=== PATIENT | male | born 1955 | race Caucasian/White ===

== ENCOUNTER 2016-10-30 17:17 | Inpatient (IN) | payer OTHER ==
[~2016-10-30] VITALS: Ht 170.2 cm; Wt 84.4 kg
--- NOTE | 2016-10-30 17:26 | NUR ---
PER PT SENT IN FOR ADMISSION FOR CHF INCREASED SOB, PMD SPOKE WITH DR. MANRIQUEZ FOR ADMISSION
--- NOTE | 2016-10-30 17:33 | NUR ---
RECIEVED TO ROOM 1
--- NOTE | 2016-10-30 17:34 | ED GENERAL ADULT ---
History of Present Illness General Chief Complaint: General Adult Stated Complaint: PT WAS SIB BY AND SPOKE TO DR MANRIQUEZ Source: patient, family Exam Limitations: no limitations Vital Signs & Intake/Output Vital Signs & Intake/Output Vital Signs Date Time Temp Pulse Resp B/P B/P Pulse O2 O2 Flow FiO2 Mean Ox Delivery Rate 10/30 1929 97.3 96 20 139/81 94 Nasal 3.0L Cannula 10/30 1807 96 Nasal 3.0L Cannula 10/30 1727 97.8 106 24 158/93 88 Room Air Allergies Coded Allergies: No Known Allergies (10/30/16) Reconcile Medications Cholecalciferol (Vitamin D3) (Vitamin D) 2,000 UNIT CAPSULE 1 CAP PO DAILY SUPPLEMENT (Reported) Multivitamin (Multi-Day Vitamins) 1 EACH TABLET 1 TAB PO DAILY SUPPLEMENT ( Reported) Triage Note: PER PT SENT IN FOR ADMISSION FOR CHF INCREASED SOB, PMD SPOKE WITH DR. MANRIQUEZ FOR ADMISSION Triage Nurses Notes Reviewed? yes HPI: Patient is a 61-year-old male sent in by his primary doctor on the Efrain Lopez MD for further evaluation of dyspnea with exertion and lower extremity edema. Patient reports that symptoms have been going on for approximately one month. Patient initially thought that he had an upper respiratory infection but symptoms persisted. Patient has a history of hypertension and diabetes that he has not been on medication for for several years. Patient presented to his primary care doctor was found to have Q waves in V1 and V2 on his EKG with a new murmur. Patient reports that dyspnea is currently 0 out of 10 at rest, moderate to severe with exertion. Lower extremity edema times one month. Patient denies chest pain, fevers, chills. (KASH LARA) Past History Medical History Any Pertinent Medical History? see below for history Neurological: NONE EENT: NONE Cardiovascular: hypertension Respiratory: NONE Gastrointestinal: NONE Hepatic: NONE Renal: NONE Musculoskeletal: NONE Psychiatric: NONE Endocrine: diabetes Surgical History Surgical History: non-contributory Psychosocial History What is your primary language [place] Tobacco Use: Never used ETOH Use: denies use Family History Hx Contributory? No (KASH LARA) Review of Systems Review of Systems Constitutional: Denies: chills, fever. EENTM: Reports: no symptoms. Respiratory: Reports: see HPI, cough, short of breath. Denies: sputum production. Cardiovascular: Reports: peripheral edema. Denies: chest pain, syncope. GI: Denies: abdominal pain, nausea, vomiting. Genitourinary: Reports: no symptoms. Musculoskeletal: Reports: no symptoms. Skin: Reports: no symptoms. Neurological/Psychological: Reports: no symptoms. Hematologic/Endocrine: Reports: no symptoms. Immunologic/Allergic: Reports: no symptoms. (KASH LARA) Physical Exam Physical Exam General Appearance: alert, awake Head: atraumatic, normal appearance Eyes: Bilateral: normal appearance, PERRL, EOMI. Ears, Nose, Throat: normal pharynx, normal ENT inspection, hearing grossly normal Neck: normal inspection, supple, full range of motion Respiratory: normal breath sounds, chest non-tender, no respiratory distress, lungs clear Cardiovascular: regular rate/rhythm, edema, normal peripheral pulses, systolic murmur (3/6) Peripheral Pulses: 2+ dorsalis pedis (R), 2+ dorsalis pedis (L) Gastrointestinal: soft, non-tender Back: normal inspection, normal range of motion Extremities: normal capillary refill, normal range of motion, 2+ BILATERAL LOWER EXTREMITY EDEMA Neurologic/Psych: no motor/sensory deficits, awake, alert, oriented x 3 Skin: intact, normal color, warm/dry Lymphatic: no anterior cervical alon Core Measures ACS in differential dx? Yes ASA ordered for poss ACS? No-ACS ruled out CVA/TIA Diagnosis: No Severe Sepsis Present: No Septic Shock Present: No (KASH LARA) Progress Differential Diagnoses I considered the following diagnoses in my evaluation of the patient: Plan of Care: Orders Procedure Date/time Status Patient Data 10/30 1911 Active Admit to inpatient 10/30 1908 Active Add-on Test (ER Only) 10/30 1754 Active FingerStick- Glucose 10/30 1744 Active Telemetry/Comptroller 10/30 174 Active TROPONIN LEVEL 10/30 1740 Active MAGNESIUM 10/30 1740 Active COMPREHENSIVE METABOLIC PANEL 10/30 1740 Active CBC WITHOUT DIFFERENTIAL 10/30 174 Complete B-TYPE NATRIURETIC PEP (BNP) 10/30 174 Active ACETONE 10/30 174 Active EKG 10/30 1730 Active Laboratory Tests 10/30/16 1758: Anion Gap 9, Estimated GFR > 60, BUN/Creatinine Ratio 24.3, Glucose 299 H, Calcium 8.5, Magnesium 1.6, Total Bilirubin 0.9, AST 19, ALT 50, Alkaline Phosphatase 91, Troponin I 0.04, Qxs-[id number]-[id number] Pept 3510 H, Total Protein 6.0 L, Albumin 3.2 L, Globulin 2.8, Albumin/Globulin Ratio 1.1, CBC w Diff NO MAN DIFF REQ, RBC 4.98, MCV 90.3, MCH 29.8, RDW 13.8, MPV 7.6, Gran % 63.4, Lymphocytes % 24.3, Monocytes % 10.4 H, Eosinophils % 1.7, Basophils % 0.2, Absolute Granulocytes 4.6, Absolute Lymphocytes 1.7, Absolute Monocytes 0.8 H, Absolute Eosinophils 0.1, Absolute Basophils 0.0, PUBS MCHC 33.1, Acetone Level Pending Results of labs and chest x-ray discussed with patient and his . IV Lasix and insulin ordered. Discussed with Dr. James. Dr. James discussed patient with Dr. Jerez for admission. (ALEX ALVARENGA,KASH) Diagnostic Imaging: Viewed by Me: Radiology Read. Discussed w/RAD: Radiology Read. CXR Impression: PATIENT: CLAY ESPINOSA PRESENT AGE: 61 PATIENT ACCOUNT NO: [id number] : 55 LOCATION: [facility] ORDERING PHYSICIAN: KASH ALVARENGA SERVICE DATE: 10/30/16 EXAM TYPE: RAD - XRY-CHEST XRAY, PA AND LATERAL EXAMINATION: XR CHEST CLINICAL INFORMATION: Dyspnea on exertion. Lower extremity edema. COMPARISON: None. TECHNIQUE: 2 views of the chest were obtained. FINDINGS: Multiple views of the chest demonstrate pulmonary hypoinflation. There is blunting of the bilateral costophrenic angles, indicative of small to moderate bilateral pleural effusions. Cardiac mediastinal contours are obscured. However, the cardiac silhouette appears to be prominent. There are prominent bilateral interstitial lung markings which could reflect interstitial pulmonary edema. No pneumothoraces. No visible acute osseous abnormality. IMPRESSION: Small to moderate bilateral pleural effusions. Prominence of the cardiac silhouette. Prominent interstitial lung markings could reflect interstitial pulmonary edema. Limited evaluation for alveolar edema given obscuration of the bilateral hilar regions by bilateral pleural effusions. DICTATED BY: VENU GAGNON MD DATE/TIME DICTATED:10/30/161899 [employer] MACHINE OPERATOR:VANESSA DATE/TIME TRANSCRIBED:10/30/161899 CONFIDENTIAL, DO NOT COPY WITHOUT APPROPRIATE AUTHORIZATION. <Electronically signed in Other Vendor System> SIGNED BY: VENU GAGNON MD 10/30/161903 Pre-Hospital EKG: SINUS RHYTHM 100 BPM, NORMAL AXIS, Q WAVES V1 AND V2, NONSPECIFIC ST/T WAVE ABNORMALITIES Initial ED EKG: SINUS TACHYCARDIA 104 BPM, Q WAVES V1 AND V2, NONSPECIFIC ST/T WAVE ABNORMALITIES Rhythm Strip: normal sinus rhythm (KASH LARA) Departure Departure Time of Disposition: 1907 Disposition: HOME OR SELF CARE Condition: Stable Clinical Impression Primary Impression: CHF exacerbation Qualifiers: Congestive heart failure type: unspecified congestive heart failure type Qualified Code: I50.9 - Heart failure, unspecified Referrals: EFRAIN LOPEZ MD (PCP/Family) Departure Forms: Customer Survey General Discharge Information Admission Note Spoke With: DON JEREZ MD Documentation of Exam: Documentation of any treatments & extenuating circumstances including Concerns Regarding Discharge (functional status, medication knowledge or non-compliance, living conditions, etc.) that warrant an admission rather than observation: Telemetry monitoring, serial EKGs, serial troponins, diuresis, echocardiogram, cardiology consultation, control blood sugars (KASH LARA) PA/RN HEDIS Co-Sign Statement Statement: ED Attending supervision documentation- [X] I saw and evaluated the patient. I have also reviewed all the pertinent lab results and diagnostic results. I agree with the findings and the plan of care as documented in the PA's/RN HEDIS's documentation. [X] I have reviewed the ED Record and agree with the PA's/RN HEDIS's documentation. [] Additions or exceptions (if any) to the PAs/RN HEDIS's note and plan are summarized below: [] (BENNIE SALCEDO,NATHAN Reyes) Critical Care Note Critical Care Note Critical Care Time: non-applicable (KASH LARA)
--- NOTE | 2016-10-30 17:40 | NUR ---
SEEN BY KASH ALVARENGA. EKG DONE
--- NOTE | 2016-10-30 17:45 | NUR ---
PT ON MONITOR AND IS IN SINUS TACH.
--- NOTE | 2016-10-30 17:59 | NUR ---
IV PLACED. LABS DRAWN. FINGERSTICK GLUCOSE 308
--- NOTE | 2016-10-30 18:02 | NUR ---
PT SATS 89% ON ROOM AIR. PLACED ON 2 LITERS AND SAYS 93%. INCREASED TO 3 LITERS
[2016-10-30 18:09] LABS: ABSOLUTE EOSINOPHIL COUNT 0.1 /CUMM (0.0-0.7); ABSOLUTE GRANULOCYTE CT 4.6 /CUMM (1.4-6.5); ABSOLUTE LYMPH COUNT 1.7 /CUMM (1.2-3.4); ABSOLUTE MONOCYTE COUNT 0.8 /CUMM (0.10-0.60); BASOPHIL % 0.2 % (0.0-2.0); EOSINOPHIL % 1.7 % (0-5); MEAN CORPUSCULAR HGB 29.8 PG (27.0-31.0); MEAN CORPUSCULAR HGB CONC 33.1 G/DL (33.0-37.0); MEAN CORPUSCULAR VOLUME 90.3 FL (80.0-94.0); MEAN PLATELET VOLUME 7.6 FL (7.4-10.4); PLATELET COUNT 255 /CUMM (130-400); RBC DISTRIBUTION WIDTH 13.8 % (11.5-14.5); RED BLOOD CELL CT 4.98 /CUMM (4.70-6.10); WHITE BLOOD CELL COUNT 7.2 /CUMM (4.8-10.8)
[2016-10-30 18:10] LABS: GRANULOCYTE % 63.4 % (42.2-75.2); HEMATOCRIT 44.9 % (42-52)
[2016-10-30] MEDS ORDERED: VITAMIN D2000 UNIT PO (18:56)
[2016-10-30] MEDS ORDERED: MULTI-DAY VITA1 EACH PO (18:56)
--- NOTE | 2016-10-30 19:04 | RADIOLOGY REPORT ---
EXAMINATION: XR CHEST CLINICAL INFORMATION: Dyspnea on exertion. Lower extremity edema. COMPARISON: None. TECHNIQUE: 2 views of the chest were obtained. FINDINGS: Multiple views of the chest demonstrate pulmonary hypoinflation. There is blunting of the bilateral costophrenic angles, indicative of small to moderate bilateral pleural effusions. Cardiac mediastinal contours are obscured. However, the cardiac silhouette appears to be prominent. There are prominent bilateral interstitial lung markings which could reflect interstitial pulmonary edema. No pneumothoraces. No visible acute osseous abnormality. IMPRESSION: Small to moderate bilateral pleural effusions. Prominence of the cardiac silhouette. Prominent interstitial lung markings could reflect interstitial pulmonary edema. Limited evaluation for alveolar edema given obscuration of the bilateral hilar regions by bilateral pleural effusions.
--- NOTE | 2016-10-30 20:11 | NUR ---
PT SET UP TO EAT DINNER. GIVEN INSULIN. GLUCOSE CHECKED AGAIN PRIOR TO EATING
--- NOTE | 2016-10-30 21:10 | NUR ---
HOUSE STAFF IN TO SEE PT. PT VOIDING ON EDGE OF STRETCHER AFTER HOUSE STAFF COMPLETED EXAM
--- NOTE | 2016-10-30 21:16 | History & Physical ---
RICHAR SALCEDO,[facility] 10/30/166: General Information and [facility] MD Statement: I have seen and personally examined CLAY ESPINOSA and documented this H&P. The patient is a 61 year old M who presented with a patient stated chief complaint of [exertional dyspnea and lower extremity edema]. Source of Information: patient, family Exam Limitations: no limitations History of Present Illness: Mr. Espinosa is a 61 year old male with chief complain dyspnea on exertion and lower extremity edema. Patient has past medical history significant for diabetes mellitus and hypertension not on medication. Patient presented to ED today after he was in PCP office Dr. Reddy, his PCP noticed EKG changes in terms of Q waves in V1 and V2, new murmur and asked him to head to ED for evaluation. Patient reported history of 1 month of exertional dyspnea, it started as "chest cold" with dry cough and choking attacks with solid food. He reported improvement of his cough but the dyspnea maintained to be the same on exertion. His dyspnea affected his daily activity and sleep, he became more fatigued and he used to be "stomach sleeper" but now he sleeps on his left side with positive paroxysmal nocturnal dyspnea. Patient also reported bilateral lower extremity edema for one month, used to elevate his legs to improve the swelling. Patient denied any chest pain, chest tightness, palpitation, diaphoresis, dizziness, headache, visual changes, fever or chills. Patient reported decreased oral intake because of choking attacks and "swollen stomach" distended abdomen associated with decreased bowel movement, denied nausea, vomiting. The patient has no previous history of any cardiac disease, history of hypertension and diabetes not on any medication and his last doctor office was 9 years ago because of insurance issues. Patient is never a smoker, no history of alcohol consumption, no drugs. Allergies/Medications Allergies: Coded Allergies: No Known Allergies (10/30/16) Home Med list Cholecalciferol (Vitamin D3) (Vitamin D) 2,000 UNIT CAPSULE 1 CAP PO DAILY SUPPLEMENT (Reported) Multivitamin (Multi-Day Vitamins) 1 EACH TABLET 1 TAB PO DAILY SUPPLEMENT ( Reported) Past History Medical History Neurological: NONE EENT: NONE Cardiovascular: hypertension Respiratory: NONE Gastrointestinal: NONE Hepatic: NONE Renal: NONE Musculoskeletal: NONE Psychiatric: NONE Endocrine: diabetes Surgical History Surgical History: non-contributory Past Family/Social History Psychosocial History Where do you live? Home Who Do You Live With? spouse Services at Home: None Primary Language: Bel[place]ian Smoking Status: Never Smoked ETOH Use: denies use Illicit Drug Use: denies illicit drug use Employment History Employment Retired Review of Systems Review of Systems Constitutional: Denies: chills, diaphoresis, fever, weakness. EENTM: Denies: blurred vision, visual changes. Genitourinary: Denies: dysuria, frequency. Musculoskeletal: Denies: back pain, joint pain. Skin: Denies: change in skin color, change in hair/nails. Exam & Diagnostic Data Last 24 Hrs of Vital Signs/I&O Vital Signs Date Time Temp Pulse Resp B/P B/P Pulse O2 O2 Flow FiO2 Mean Ox Delivery Rate 10/30 2139 98.3 96 20 134/77 94 Nasal 3.0L Cannula 10/30 1930 97.3 96 20 139/81 94 Nasal 3.0L Cannula 10/30 1807 96 Nasal 3.0L Cannula 10/30 1727 97.8 106 24 158/93 88 Room Air Physical Exam General Appearance Alert, Oriented X3, Cooperative, No Acute Distress Skin No Rashes, No Significant Lesion Skin Temp/Moisture Exam: Warm/Dry HEENT Atraumatic, PERRLA, EOMI, Mucous Membr. moist/pink Neck Supple, JVP positive Lymphatic no cervical lymphadenopathy Cardiovascular Regular Rate, Normal S1, Normal S2, systolic murmur 2/5 max intensity at left sternal border Lungs Normal Air Movement, BL Basal crackles Abdomen Normal Bowel Sounds, Soft, No Tenderness, destended Neurological Normal Gait, Normal Speech, Strength at 5/5 X4 Ext, Normal Tone, Sensation Intact, Cranial Nerves 3-12 NL, Reflexes 2+ Extremities No Clubbing, No Cyanosis, Normal Pulses, BL LE +2 edema Assessment/Plan Assessment: Mr. Espinosa is a 61 year old male with chief complain dyspnea on exertion and lower extremity edema. Patient has past medical history significant for diabetes mellitus and hypertension not on medication. On admission Vital signs 97.8, pulse 106, blood pressure 158/93, respiratory rate 24 on the room air 88% that increased to 96% on 3 L Labs WBC 7.2, H&H 14.9/44.9, platelet 255, sodium 132, potassium 4.3, BUN/ creatinine 17/0.7, glucose 299, BP [id number] Chest x-ray IMPRESSION: Small to moderate bilateral pleural effusions. Prominence of the cardiac silhouette. Prominent interstitial lung markings could reflect interstitial pulmonary edema. Limited evaluation for alveolar edema given obscuration of the bilateral hilar regions by bilateral pleural effusions. Problem list #Acute CHF #Hypertension #Diabetes mellitus #Acute hypoxic respiratory failure moslty CHF relalated Plan -Admit to telemetry floor -Lasix 40 mg twice a day -Lisinopril 10 mg daily for hypertension and CHF -Cardiology consultation in a.m. -Echocardiogram -Repeat troponin and EKG -Daily weights, strict I's and O's -Maintain oxygen supplementation, maintain saturation more than 92% -Consider repeating chest x-ray to evaluate improvement -Monitor BMP -Accu-Chek 3 times a day and insulin sliding scale -Hemoglobin A1c -DVT prophylaxis Lovenox -Code DNR/DNI -Diet heart healthy As Ranked By This Provider Problem List: 1. CHF exacerbation Qualifiers Congestive heart failure type: unspecified congestive heart failure type Qualified Code: I50.9 - Heart failure, unspecified Core Measures/Miscellaneous Acute Coronary Syndrome ACS Diagnosis: No Cerebrovascular Accident CVA/TIA Diagnosis: No Congestive Heart Failure CHF Diagnosis: Yes Venous Thromboembolism VTE Risk Factors: Age > 40 No Mech VTE prophylaxis d/t: LE Edema No VTE Pharm Prophylaxis d/t: No contraindications VTE Diagnosis: No VTE Type: NONE VTE Confirmed by (Test): NONE Severe Sepsis Severe Sepsis Present: No Septic Shock Septic Shock Present: No Miscellaneous Documentation Attending Case Discussed With: DON THORNTON MD Primary Care Physician: EFRAIN VALLES MD Patient sees these Specialists none Level of Patient Care: Telemetry TRAVIS YIN 10/31/16 0001: Resident Review Statement Resident Statement: examined this patient, discussed with international first officer, agreed with international first officer, discussed with family, reviewed EMR data (avail) Other Findings: is a 61-year-old male with PMHx. of HTN, DM not in medications sent in by his primary doctor on the Efrain Valles MD for further evaluation of dyspnea with exertion and lower extremity edema. Patient reports that symptoms have been going on for approximately one month. Patient initially thought that he had an URTI but symptoms persisted. PCP found that the patient had a new murmur. dyspnea is more with exertion and relived by rest, associated with lower extremity started around the same time. Patient had abdominal distension that was started around the same time, he usually feels full which decrease his appettite. Patient never seen by PCP for 9 years, today is the first time to be seen by Patient denies chest pain, fevers, chills, n/v, and there is no change in urinary or bowel habits Vitals, examination and labs as above CXR:Small to moderate bilateral pleural effusions. Prominence of the cardiac silhouette. Prominent interstitial lung markings could reflect interstitial pulmonary edema. Limited evaluation for alveolar edema given obscuration of the bilateral hilar regions by bilateral pleural effusions. EKG: SR, Rate:104bpm, flat-T wave at inferior lead Assessment: #Acute CHF exacerbation #Hx. of HTN #Hx. of diabetes Plan: * Admit to tele * Will cycle troponin and EKG * He received one dose of IV Lasix, will start him on 40 IV lasix BID * Cardiology consult placed with * Will start him on insulin sliding scale * Monitor BP if still high start Lisiopril * Will check TSH * BEP, cbc at am * Lipid panel at am * Strict I's &O's and daily weight * Echocardiogram DVT ppx: sc lovenox DNR/DNI DON THORNTON 10/31/16 0049: Attending MD Review Statement Attending Statement Attending MD Statement: examined this patient, discuss w/resident/PA/STUNTMAN, agreed w/resident/PA/STUNTMAN, discussed with family, reviewed EMR data (avail), reviewed images, amended to note Attending Assessment/Plan: Cc: Worsening shortness of breath, sent by PCP PMH: None Patient came to ER from PCP office. He has not seen his primary care in 9 years, not on any medications. Today he went to see him because he was getting progressive worsening of shortness of breath, dyspnea on exertion, dry cough, congested feeling in chest, choking while eating, unable to lie down flat, waking up in the middle of the night gasping for air, worsening bilateral lower extremity edema, decreased by mouth intake, decreased level of activity. Initially he thought he might be having some respiratory bug or bronchitis but when it was not clearing off even after a month he made an appointment with PCP. From his office patient was sent to ER for EKG changes, ?murmur Vitals: Afebrile, HR 106 at presentation, RR 24, blood pressure 158/93, saturating 88% on room air, improved with 3 L nasal cannula to 94% On examination: A O 3, cooperative, moderate respiratory distress, accessory muscles in use, neck supple, JVD elevated, no lymphadenopathy, mucosa moist, no focal neurological deficit, severe pitting edema bilateral lower extremities, no obvious skin rashes or inflammation except some superficial breakdowns on shins. CVS: S1-S2, RRR . RS: Bibasilar crackles. Abdomen: Soft, NT, distended bowel sounds present. Peripheral pulses perfusion normal Labs CBC unremarkable, glucose 299, bicarbonate 26, BUN 17, creatinine 0.7, anion gap 9, proBNP 3510, troponin 0.04 EKG: ?Q waves V1 and lead 3, no comparison available Chest x-ray: Small to moderate bilateral pleural effusions. Prominence of the cardiac silhouette. Prominent interstitial lung markings could reflect interstitial pulmonary edema. Limited evaluation for alveolar edema given obscuration of the bilateral hilar regions by bilateral pleural effusions. A and P Progressive worsening of shortness of breath, chest congestion, worsening left lower extremity edema, significantly elevated proBNP, and examination findings suggestive of heart failure. This appears new onset, patient is unaware of and not seen any physician in last 9 years. Patient denies any chest pain, exertional angina. + New onset heart failure, acute + Acute respiratory failure hypoxic secondary to heart failure + Hyperglycemia, likely new onset diabetes + Mildly elevated blood pressure - Admit to telemetry - Telemetry monitoring - Continue his O2, tapered off as possible - Strict I's and O's, daily weights - 1 more set of troponin, and EKG - Lasix 40 mg IV twice a day - Check magnesium and replace if required - 2-D echo in a.m. - Cardiology consult (patient request Dr. Ingram's group) - HbA1c, lipid profile - Sliding scale low-dose insulin aspart - If blood pressure persistently high then start lisinopril very low dose from tomorrow. - DVT prophylaxis with heparin, adequate pain control.
--- NOTE | 2016-10-30 21:45 | NUR ---
PT VOIDING IN URINAL AFTER GETTING LASIX. ABLE TO OBTAIN ACCURATE URINE OUTPUT THIS METHOD. PAGED DR GUEVARA AND ASKED IF WE COULD NOT PLACE [facility]ENE CATH. VERBAL ORDERS RECIEVED TO NOT PLACE KEENE AT THIS TIME
--- NOTE | 2016-10-30 22:14 | NUR ---
PT GOING TO ROOM 189-2
--- NOTE | 2016-10-30 22:21 | NUR ---
REPORT CALLED TO MELINA ON TELE UNIT
--- NOTE | 2016-10-30 22:42 | NUR ---
PT TRANSFERRED TO TELE UNIT, ACCOMPANIED BY HERMELINDA LI
[2016-10-30 22:59] VITALS: BP 126/88
--- NOTE | 2016-10-30 23:00 | NUR ---
NURSING NOTE; PT ADMITTED TO FLOOR FROM ER. A+OX3. NSR 70'S. VSS. RECEIVED IV LASIX IN THE ER. VOIDING USING URINAL. ON 2L NC. NO S/O SOB.
--- NOTE | 2016-10-31 00:51 | Admission Certification ---
Admission Certification Certification Statement - As attending physician, I certify that at the time of - admission, based on clinical presentation, severity of - symptoms, need for further diagnostic testing and - therapeutic interventions, and risk of adverse outcomes - without in-hospital treatment, in my clinical assessment, - this patient requires an acute hospital stay for a minimum - of two nights or longer. I have also considered psychsocial - factors such as support system, advanced age, financial - issues, cognitive issues, and failed out-patient treatments, - past re-admission history, safety of patient, and lack of - compliance as applicable. Specific rationale supporting this admission is: New onset heart failure
--- NOTE | 2016-10-31 07:35 | PN- Housestaff ---
LEN EVANS 10/31/16 0735: Subjective Follow-up For: Acute CHF Lower extremity edema Shortness of breath Complaints: no complaints Tele-Events Since Last Visit: No overnight telemetry events noted Subjective: Patient was seen and examined this morning. He was sitting comfortably in bed without any complaints. He admits that his bleeding and lower extremity edema is better after IV Lasix. He remained afebrile. He is saturating 94% on 2 L of nasal cannula. His blood sugars were running high with night time postprandial was 307, fasting blood sugar was 167 and prelunch was 273. During hospital stay patient is covered with insulin for now. His hemoglobin A1c came back 11.8. Patient haven't seen his primary care for years and was not taking any medications for his diabetes. Review of Systems Constitutional: Denies: chills, diaphoresis. EENTM: Denies: blurred vision, double vision. Cardiovascular: Reports: edema, orthopena. Respiratory: Denies: cough, hemoptysis. Gastrointestinal: Denies: abdominal pain, bloating. Genitourinary: Denies: discharge, frequency. Objective Last 24 Hrs of Vital Signs/I&O Vital Signs Date Time Temp Pulse Resp B/P B/P Pulse O2 O2 Flow FiO2 Mean Ox Delivery Rate 10/31 1120 Nasal 2.0L Cannula 10/31 0813 98.1 89 18 128/82 94 Nasal 2.0L Cannula 10/31 0800 Nasal 2.0L Cannula 10/31 0000 Nasal 2.0L Cannula 10/30 2320 96 Nasal 2.0L Cannula 10/30 2259 99.4 97 18 126/88 93 10/30 2139 98.3 96 20 134/77 94 Nasal 3.0L Cannula 10/30 1930 97.3 96 20 139/81 94 Nasal 3.0L Cannula 10/30 1807 96 Nasal 3.0L Cannula 10/30 1727 97.8 106 24 158/93 88 Room Air Intake & Output 10/31 1600 10/31 0800 10/31 0000 Intake Total 50 Output Total 800 1100 Balance -750 -1100 Intake, Oral 50 Output, Urine 800 1100 Patient 193 lb 197 lb Weight Weight Standing Scale Chair scale Measurement Method Physical Exam General Appearance: Alert, Oriented X3, Cooperative, No Acute Distress Skin: No Breakdown HEENT: Atraumatic, PERRLA Cardiovascular: Regular Rate, Normal S1, Normal S2, No Murmurs Lungs: bibasilar crepitations Abdomen: Soft, No Hepatospenomegaly Extremities: 1+ edema Current Medications: Current Medications Sig/Aleksandar Start time Last Medication Dose Route Stop Time Status Admin Acetaminophen 650 MG Q6P PRN 10/30 2130 AC PO Aspirin 81 MG DAILY 10/31 1330 AC PO Atorvastatin Calcium 40 MG 1700 10/31 1700 AC PO Cholecalciferol 1,000 IU DAILY 10/31 1000 AC 10/31 PO 0949 Enoxaparin Sodium 40 MG DAILY 10/31 1000 AC 10/31 SC 0949 Furosemide 40 MG 0800 & 1700 10/31 0800 AC 10/31 IV 0949 Furosemide 0 .STK-MED ONE 10/30 1913 DC IV Furosemide 40 MG ONCE ONE 10/30 1899 DC 10/30 IV PUSH 10/30 Insulin Aspart 0 TIDAC 10/31 0800 AC 10/31 MT 1229 Insulin Human Regular 8 UNITS ONCE ONE 10/30 1914 DC 10/30 MT 10/30 Ketorolac 15 MG Q8P PRN 10/30 2130 AC Tromethamine IV Magnesium Oxide 400 MG ONE ONE 10/31 0700 DC 10/31 PO 10/31 0701 0555 Multivitamins 1 TAB DAILY 10/31 1000 AC 10/31 Therapeutic PO 0949 Oxycodone/ 2 TAB Q6P PRN 10/30 2130 AC Acetaminophen PO Last 24 Hrs of Lab/Steven Results Last 24 Hrs of Labs/Mics: Laboratory Tests 10/31/16 0710: Anion Gap 9, Estimated GFR > 60, BUN/Creatinine Ratio 22.9, Hemoglobin A1c 11.8 H, Troponin I 0.05, Triglycerides 71, Cholesterol 120, LDL Cholesterol, Calc 76, HDL Cholesterol 30 L, Cholesterol/HDL Ratio 4, CBC w Diff NO MAN DIFF REQ, RBC 4.81, MCV 90.3, MCH 30.1, RDW 13.9, MPV 7.8, Gran % 51.7, Lymphocytes % 32.5, Monocytes % 12.0 H, Eosinophils % 3.4, Basophils % 0.4, Absolute Granulocytes 3.5, Absolute Lymphocytes 2.2, Absolute Monocytes 0.8 H, Absolute Eosinophils 0.2, Absolute Basophils 0, PUBS MCHC 33.3 10/31/16 0025: Troponin I 0.05 10/30/16 1758: Anion Gap 9, Estimated GFR > 60, BUN/Creatinine Ratio 24.3, Glucose 299 H, Calcium 8.5, Magnesium 1.6, Total Bilirubin 0.9, AST 19, ALT 50, Alkaline Phosphatase 91, Troponin I 0.04, Uza-X-Jrxvrwjwfty Pept 3510 H, Total Protein 6.0 L, Albumin 3.2 L, Globulin 2.8, Albumin/Globulin Ratio 1.1, TSH 2.580, CBC w Diff NO MAN DIFF REQ, RBC 4.98, MCV 90.3, MCH 29.8, RDW 13.8, MPV 7.6, Gran % 63.4, Lymphocytes % 24.3, Monocytes % 10.4 H, Eosinophils % 1.7, Basophils % 0.2, Absolute Granulocytes 4.6, Absolute Lymphocytes 1.7, Absolute Monocytes 0.8 H, Absolute Eosinophils 0.1, Absolute Basophils 0.0, PUBS MCHC 33.1, Acetone Level NEGATIVE Microbiology 10/30 2116 URINE ROUT: Urine Culture - CAN Cancelled: Cancelled via OE: Per MD Decision Assessment/Plan Assessment: is a 61-year-old male with PMHx. of HTN, DM not in medications sent in by his primary doctor on the Efrain Valles MD for further evaluation of dyspnea with exertion and lower extremity edema. On admission his imaging studies as well as his labs and clinical examination was significant for CHF exacerbation. We'll admit patient on telemetry floor and will take it for the following problems Problem #1 lower extremity edema and shortness of breath most likely due to CHF exacerbation and ACS ruled out -Patient was started on IV Lasix and will continue intravenous diuresis for now and will change it to oral later and will strictly monitor his intakes and outputs. -First 3 sets of troponins were negative and acute coronary syndrome was ruled out -Echocardiogram is still pending to look for his ventricle function and patient will need further cardiac workup/stress test as an outpatient -Patient was seen by cardiology. We will start patient on aspirin and statins -We might consider patient starting on low-dose of MEDARDO inhibitor is as having significant elevated hemoglobin A1c. -We'll check urine microalbumin Problem #2 diabetes mellitus not on any hypoglycemic agents at home -Accu-Cheks 3 times a day/allergies -We will cover with high-dose NovoLog according to sliding scale in the hospital but will consider starting patient on metformin on discharge and patient will follow up with his PCP for further stepping up therapy. Problem #3 history of hypertension not on any antihypertensives -Currently his blood pressure is fine but we will consider starting him on low- dose of MEDARDO inhibitor after asking his evidence custodian. Problem List: 1. CHF exacerbation Pain Ratin Pain Location: Not applicable Pain Goal: Remain pain free Pain Plan: Tylenol Tomorrow's Labs & Rationales: CBC and basic electrolyte panel HAMMAD FERNANDEZ MD 10/31/16 1350: Attending MD Review Statement Attending Statement Attending MD Statement: examined this patient, discuss w/resident/PA/SHOOTER HELPER, agreed w/resident/PA/SHOOTER HELPER, reviewed EMR data (avail), discussed with nursing, discussed with case mgmt, reviewed images, amended to note Attending Assessment/Plan: Patient seen and examined, feels much better. SOB is better, LE is still therre. Vital Signs Date Time Temp Pulse Resp B/P B/P Pulse O2 O2 Flow FiO2 Mean Ox Delivery Rate 10/31 1120 Nasal 2.0L Cannula 10/31 0813 98.1 89 18 128/82 94 Nasal 2.0L Cannula 10/31 0800 Nasal 2.0L Cannula 10/31 0000 Nasal 2.0L Cannula 10/30 2320 96 Nasal 2.0L Cannula 10/30 2259 99.4 97 18 126/88 93 10/30 2139 98.3 96 20 134/77 94 Nasal 3.0L Cannula 10/30 1930 97.3 96 20 139/81 94 Nasal 3.0L Cannula 10/30 1807 96 Nasal 3.0L Cannula 10/30 1727 97.8 106 24 158/93 88 Room Air on exam; aox3, nad cv; s1,s2, rrr resp; decreased bs at bases. abd; soft, nt, bs+ ext; 2+ edema. Laboratory Tests 10/31 10/31 0710 0025 Chemistry Sodium (137 - 145 mmol/L) 136 L Potassium (3.5 - 5.1 mmol/L) 4.0 Chloride (98 - 107 mmol/L) 98 Carbon Dioxide (22 - 30 mmol/L) 29 Anion Gap (5 - 16) 9 BUN (9 - 20 mg/dL) 16 Creatinine (0.7 - 1.2 mg/dL) 0.7 Estimated GFR (>60 ml/min) > 60 BUN/Creatinine Ratio (7 - 25 %) 22.9 Hemoglobin A1c (4.2 - 5.8 %) 11.8 H Troponin I (<0.11 ng/ml) 0.05 0.05 Triglycerides (<150 mg/dL) 71 Cholesterol (< 200 MG/DL) 120 LDL Cholesterol, Calc (65 - 129 mg/dL) 76 HDL Cholesterol (40 - 60 mg/dL) 30 L Cholesterol/HDL Ratio (0.00 - 4.88 %) 4 Hematology CBC w Diff NO MAN DIFF REQ WBC (4.8 - 10.8 /CUMM) 6.8 RBC (4.70 - 6.10 /CUMM) 4.81 Hgb (14.0 - 18.0 G/DL) 14.5 Hct (42 - 52 %) 43.4 MCV (80.0 - 94.0 FL) 90.3 MCH (27.0 - 31.0 PG) 30.1 RDW (11.5 - 14.5 %) 13.9 Plt Count (130 - 400 /CUMM) 244 MPV (7.4 - 10.4 FL) 7.8 Gran % (42.2 - 75.2 %) 51.7 Lymphocytes % (20.5 - 51.1 %) 32.5 Monocytes % (1.7 - 9.3 %) 12.0 H Eosinophils % (0 - 5 %) 3.4 Basophils % (0.0 - 2.0 %) 0.4 Absolute Granulocytes (1.4 - 6.5 /CUMM) 3.5 Absolute Lymphocytes (1.2 - 3.4 /CUMM) 2.2 Absolute Monocytes (0.10 - 0.60 /CUMM) 0.8 H Absolute Eosinophils (0.0 - 0.7 /CUMM) 0.2 Absolute Basophils (0.0 - 0.2 /CUMM) 0 PUBS MCHC (33.0 - 37.0 G/DL) 33.3 05/ 1758 Chemistry Sodium (137 - 145 mmol/L) 132 L Potassium (3.5 - 5.1 mmol/L) 4.3 Chloride (98 - 107 mmol/L) 97 L Carbon Dioxide (22 - 30 mmol/L) 26 Anion Gap (5 - 16) 9 BUN (9 - 20 mg/dL) 17 Creatinine (0.7 - 1.2 mg/dL) 0.7 Estimated GFR (>60 ml/min) > 60 BUN/Creatinine Ratio (7 - 25 %) 24.3 Glucose (65 - 99 mg/dL) 299 H Calcium (8.4 - 10.2 mg/dL) 8.5 Magnesium (1.6 - 2.3 mg/dL) 1.6 Total Bilirubin (0.2 - 1.3 mg/dL) 0.9 AST (17 - 59 U/L) 19 ALT (21 - 72 U/L) 50 Alkaline Phosphatase (< 127 U/L) 91 Troponin I (<0.11 ng/ml) 0.04 Aed-N-Irrxtrvjmur Pept (<125 pg/mL) 3510 H Total Protein (6.3 - 8.2 g/dL) 6.0 L Albumin (3.5 - 5.0 g/dL) 3.2 L Globulin (1.9 - 4.2 gm/dL) 2.8 Albumin/Globulin Ratio (1.1 - 2.2 %) 1.1 TSH (0.270 - 4.200 uIU/mL) 2.580 Hematology CBC w Diff NO MAN DIFF REQ WBC (4.8 - 10.8 /CUMM) 7.2 RBC (4.70 - 6.10 /CUMM) 4.98 Hgb (14.0 - 18.0 G/DL) 14.9 Hct (42 - 52 %) 44.9 MCV (80.0 - 94.0 FL) 90.3 MCH (27.0 - 31.0 PG) 29.8 RDW (11.5 - 14.5 %) 13.8 Plt Count (130 - 400 /CUMM) 255 MPV (7.4 - 10.4 FL) 7.6 Gran % (42.2 - 75.2 %) 63.4 Lymphocytes % (20.5 - 51.1 %) 24.3 Monocytes % (1.7 - 9.3 %) 10.4 H Eosinophils % (0 - 5 %) 1.7 Basophils % (0.0 - 2.0 %) 0.2 Absolute Granulocytes (1.4 - 6.5 /CUMM) 4.6 Absolute Lymphocytes (1.2 - 3.4 /CUMM) 1.7 Absolute Monocytes (0.10 - 0.60 /CUMM) 0.8 H Absolute Eosinophils (0.0 - 0.7 /CUMM) 0.1 Absolute Basophils (0.0 - 0.2 /CUMM) 0.0 PUBS MCHC (33.0 - 37.0 G/DL) 33.1 Toxicology Acetone Level (NEGATIVE) NEGATIVE A/P; 61 y/o M with pmh sig for diabetes, htn admitted with sob, found to have Acute CHF, ECHO results pending. Started on IV lasix. Continue to monitor Is/Os, daily wt. Appreciate Cradiology input, Please follow recommendations. Continue IV lasix, other current meds. Continue SSI, will need to get started on metformin upon DC. start low dose ASA. DVT Px; Lovenox. Please ambulate the patient.
[2016-10-31 07:56] LABS: ABSOLUTE BASOPHIL COUNT 0 /CUMM (0.0-0.2); ABSOLUTE EOSINOPHIL COUNT 0.2 /CUMM (0.0-0.7); ABSOLUTE GRANULOCYTE CT 3.5 /CUMM (1.4-6.5); ABSOLUTE LYMPH COUNT 2.2 /CUMM (1.2-3.4); ABSOLUTE MONOCYTE COUNT 0.8 /CUMM (0.10-0.60); BASOPHIL % 0.4 % (0.0-2.0); EOSINOPHIL % 3.4 % (0-5); GRANULOCYTE % 51.7 % (42.2-75.2); HEMATOCRIT 43.4 % (42-52); MEAN CORPUSCULAR HGB 30.1 PG (27.0-31.0); MEAN CORPUSCULAR HGB CONC 33.3 G/DL (33.0-37.0); MEAN CORPUSCULAR VOLUME 90.3 FL (80.0-94.0); MEAN PLATELET VOLUME 7.8 FL (7.4-10.4); PLATELET COUNT 244 /CUMM (130-400); RBC DISTRIBUTION WIDTH 13.9 % (11.5-14.5); RED BLOOD CELL CT 4.81 /CUMM (4.70-6.10); WHITE BLOOD CELL COUNT 6.8 /CUMM (4.8-10.8)
[2016-10-31 08:13] VITALS: BP 128/82
--- NOTE | 2016-10-31 10:20 | Cons- Cardiology ---
General Information and HPI Consulting Request Date of Consult: 10/31/16 Requested By: DON THORNTON MD Reason for Consult: CHF Source of Information: patient History of Present Illness: This is a pleasant 61-year-old male with a reported history of diabetes and hypertension although he has had the no medical follow-up in approximately 9 years due to insurance issues. He recently went to see primary care doctor with a chief complaint of progressive exertional dyspnea of low to moderate intensity over the last 4 weeks without associated chest pain. He does note some mild orthopnea and mild lower extremity edema. Denies paroxysmal nocturnal dyspnea. Denies associated nausea, diaphoresis, palpitations, headache, slurring of speech, or focal weakness. He initially the attributed his symptoms to a upper respiratory infection as he did have a nonproductive cough without subjective fevers. He the denies any history of smoking. Denies excessive alcohol use. Denies any history of syncope. He does feel he is improving with diuretics. Allergies/Medications Allergies: Coded Allergies: No Known Allergies (10/30/16) Home Med List: Cholecalciferol (Vitamin D3) (Vitamin D) 2,000 UNIT CAPSULE 1 CAP PO DAILY SUPPLEMENT (Reported) Multivitamin (Multi-Day Vitamins) 1 EACH TABLET 1 TAB PO DAILY SUPPLEMENT ( Reported) Current Medications: Current Medications Sig/Aleksandar Start time Last Medication Dose Route Stop Time Status Admin Acetaminophen 650 MG Q6P PRN 10/30 2130 AC PO Cholecalciferol 1,000 IU DAILY 10/31 1000 AC 10/31 PO 0949 Enoxaparin Sodium 40 MG DAILY 10/31 1000 AC 10/31 SC 0949 Furosemide 40 MG 0800 & 1700 10/31 0800 AC 10/31 IV 0949 Furosemide 0 .STK-MED ONE 10/30 1913 DC IV Furosemide 40 MG ONCE ONE 10/30 1900 DC 10/30 IV PUSH 10/30 190 191 Insulin Aspart 0 TIDAC 10/31 0800 AC 10/31 SC 0948 Insulin Human Regular 8 UNITS ONCE ONE 10/30 1914 DC 10/30 SC 10/30 Ketorolac 15 MG Q8P PRN 10/30 2130 AC Tromethamine IV Magnesium Oxide 400 MG ONE ONE 10/31 0700 DC 10/31 PO 10/31 0701 0555 Multivitamins 1 TAB DAILY 10/31 1000 AC 10/31 Therapeutic PO 0949 Oxycodone/ 2 TAB Q6P PRN 10/30 2130 AC Acetaminophen PO Review of Systems Review of Systems: Review of systems as per HPI. The remainder of a 10 point review of systems was reviewed and was otherwise negative. Past History Medical History Neurological: NONE EENT: NONE Cardiovascular: hypertension Respiratory: NONE Gastrointestinal: NONE Hepatic: NONE Renal: NONE Musculoskeletal: NONE Psychiatric: NONE Endocrine: diabetes Blood Disorders: NONE Cancer(s): NONE ORACLE R12 DEVELOPER/Reproductive: NONE Surgical History Surgical History: non-contributory Psychosocial History Where Do You Live? Home Who Do You Live With? spouse Services at Home: None Primary Language: Malay Smoking Status: Never Smoked ETOH Use: denies use Illicit Drug Use: denies illicit drug use Employment History Employment: Retired Exam & Diagnostic Data Vital Signs and I&O Vital Signs Date Time Temp Pulse Resp B/P B/P Pulse O2 O2 Flow FiO2 Mean Ox Delivery Rate 10/31 812 98.1 89 18 128/82 94 Nasal 2.0L Cannula 10/31 0000 Nasal 2.0L Cannula 10/30 2320 96 Nasal 2.0L Cannula 10/30 2259 99.4 97 18 126/88 93 10/30 2139 98.3 96 20 134/77 94 Nasal 3.0L Cannula 10/30 1930 97.3 96 20 139/81 94 Nasal 3.0L Cannula 10/30 1807 96 Nasal 3.0L Cannula 10/30 1727 97.8 106 24 158/93 88 Room Air Intake & Output 10/31 1600 10/31 0800 10/31 0000 10/30 1600 10/30 0800 10/30 0000 Intake Total 50 Output Total 800 1100 Balance -750 -1100 Intake, Oral 50 Output, Urine 800 1100 Patient 193 lb 197 lb Weight Weight Standing Scale Chair scale Measurement Method Physical Exam: General: no apparent distress. Alert. On nasal cannula. Eyes: No obvious scleral icterus. HEENT: Mild JVD Cardiovascular: Normal intensity S1/S2. One out of 6 systolic murmur Respiratory: Bibasilar rales noted Abdomen: Soft, nontender with no guarding or rebound tenderness. Musculoskeletal: No clubbing or cyanosis noted, trace to 1+ bilateral lower extremity edema Skin: Warm Neurologic: No gross focal deficits noted. Labs/Steven Results: Laboratory Tests 10/31 10/31 0710 0025 Chemistry Sodium (137 - 145 mmol/L) 136 L Potassium (3.5 - 5.1 mmol/L) 4.0 Chloride (98 - 107 mmol/L) 98 Carbon Dioxide (22 - 30 mmol/L) 29 Anion Gap (5 - 16) 9 BUN (9 - 20 mg/dL) 16 Creatinine (0.7 - 1.2 mg/dL) 0.7 Estimated GFR (>60 ml/min) > 60 BUN/Creatinine Ratio (7 - 25 %) 22.9 Hemoglobin A1c (4.2 - 5.8 %) 11.8 H Troponin I (<0.11 ng/ml) 0.05 0.05 Triglycerides (<150 mg/dL) 71 Cholesterol (< 200 MG/DL) 120 LDL Cholesterol, Calc (65 - 129 mg/dL) 76 HDL Cholesterol (40 - 60 mg/dL) 30 L Cholesterol/HDL Ratio (0.00 - 4.88 %) 4 Hematology CBC w Diff NO MAN DIFF REQ WBC (4.8 - 10.8 /CUMM) 6.8 RBC (4.70 - 6.10 /CUMM) 4.81 Hgb (14.0 - 18.0 G/DL) 14.5 Hct (42 - 52 %) 43.4 MCV (80.0 - 94.0 FL) 90.3 MCH (27.0 - 31.0 PG) 30.1 RDW (11.5 - 14.5 %) 13.9 Plt Count (130 - 400 /CUMM) 244 MPV (7.4 - 10.4 FL) 7.8 Gran % (42.2 - 75.2 %) 51.7 Lymphocytes % (20.5 - 51.1 %) 32.5 Monocytes % (1.7 - 9.3 %) 12.0 H Eosinophils % (0 - 5 %) 3.4 Basophils % (0.0 - 2.0 %) 0.4 Absolute Granulocytes (1.4 - 6.5 /CUMM) 3.5 Absolute Lymphocytes (1.2 - 3.4 /CUMM) 2.2 Absolute Monocytes (0.10 - 0.60 /CUMM) 0.8 H Absolute Eosinophils (0.0 - 0.7 /CUMM) 0.2 Absolute Basophils (0.0 - 0.2 /CUMM) 0 PUBS MCHC (33.0 - 37.0 G/DL) 33.3 05/ 1758 Chemistry Sodium (137 - 145 mmol/L) 132 L Potassium (3.5 - 5.1 mmol/L) 4.3 Chloride (98 - 107 mmol/L) 97 L Carbon Dioxide (22 - 30 mmol/L) 26 Anion Gap (5 - 16) 9 BUN (9 - 20 mg/dL) 17 Creatinine (0.7 - 1.2 mg/dL) 0.7 Estimated GFR (>60 ml/min) > 60 BUN/Creatinine Ratio (7 - 25 %) 24.3 Glucose (65 - 99 mg/dL) 299 H Calcium (8.4 - 10.2 mg/dL) 8.5 Magnesium (1.6 - 2.3 mg/dL) 1.6 Total Bilirubin (0.2 - 1.3 mg/dL) 0.9 AST (17 - 59 U/L) 19 ALT (21 - 72 U/L) 50 Alkaline Phosphatase (< 127 U/L) 91 Troponin I (<0.11 ng/ml) 0.04 Rzr-Z-Hmebppzqnvj Pept (<125 pg/mL) 3510 H Total Protein (6.3 - 8.2 g/dL) 6.0 L Albumin (3.5 - 5.0 g/dL) 3.2 L Globulin (1.9 - 4.2 gm/dL) 2.8 Albumin/Globulin Ratio (1.1 - 2.2 %) 1.1 TSH (0.270 - 4.200 uIU/mL) 2.580 Hematology CBC w Diff NO MAN DIFF REQ WBC (4.8 - 10.8 /CUMM) 7.2 RBC (4.70 - 6.10 /CUMM) 4.98 Hgb (14.0 - 18.0 G/DL) 14.9 Hct (42 - 52 %) 44.9 MCV (80.0 - 94.0 FL) 90.3 MCH (27.0 - 31.0 PG) 29.8 RDW (11.5 - 14.5 %) 13.8 Plt Count (130 - 400 /CUMM) 255 MPV (7.4 - 10.4 FL) 7.6 Gran % (42.2 - 75.2 %) 63.4 Lymphocytes % (20.5 - 51.1 %) 24.3 Monocytes % (1.7 - 9.3 %) 10.4 H Eosinophils % (0 - 5 %) 1.7 Basophils % (0.0 - 2.0 %) 0.2 Absolute Granulocytes (1.4 - 6.5 /CUMM) 4.6 Absolute Lymphocytes (1.2 - 3.4 /CUMM) 1.7 Absolute Monocytes (0.10 - 0.60 /CUMM) 0.8 H Absolute Eosinophils (0.0 - 0.7 /CUMM) 0.1 Absolute Basophils (0.0 - 0.2 /CUMM) 0.0 PUBS MCHC (33.0 - 37.0 G/DL) 33.1 Toxicology Acetone Level (NEGATIVE) NEGATIVE Diagnostic Data EKG Results Tracing was personally reviewed and shows sinus rhythm at 86 bpm with borderline low voltage and nonspecific T-wave flattening and QT prolongation CXR Results IMPRESSION: Small to moderate bilateral pleural effusions. Prominence of the cardiac silhouette. Prominent interstitial lung markings could reflect interstitial pulmonary edema. Limited evaluation for alveolar edema given obscuration of the bilateral hilar regions by bilateral pleural effusions. Other Results Telemetry tracings were personally reviewed and shows sinus rhythm Assessment/Plan Assessment/Plan 1. Progressive exertional dyspnea likely due to new onset congestive heart failure 2. Pleural effusions 3. Diabetes, uncontrolled 4. Reported history of hypertension 5. Abnormal ECG 6. History of noncompliance with medical follow-up due to loss of insurance The patient's symptoms along with his physical exam and chest x-ray are suggestive of new onset congestive heart failure of unclear etiology. Echocardiogram to assess his ventricular function is pending. He is currently hemodynamically stable. A1c indicates poorly controlled diabetes and he had not seen a doctor in many years. He will require ischemic testing in the future which can likely be done as an outpatient. Would continue with IV diuresis while monitoring strict in's and out's and daily weights. I recommend starting the patient on empiric low-dose aspirin therapy and empiric low-dose statin as he certainly may have ischemic heart disease. Jeffery Turner MD [facility] Consult Acknowledgment - Thank you for your consult request.
[2016-10-31 16:41] VITALS: BP 120/80
--- NOTE | 2016-10-31 21:34 | ECHOCARDIOGRAM REPORT ---
CLAY ESPINOSA Age: 61 : 1955 Gender: M Exam Date: 10/31/2016 19:03 Exam Location: 1 [address] Ht (in): 67 Wt (lb): 193 BSA: 2.06 BP: 120 / 82 Ordering Physician: TRAVIS GUEVARA MD Referring Physician: Stanley Turner M.D. Technologist: Patricia [facility] Room Number: 189-02 Indications: SHORTNESS OF BREATH, ASSESS LVF Rhythm: Technical Quality: fair to poor FINDINGS Left Ventricle Normal size left ventricle. Moderately abnormal left ventricular ejection fraction estimated at 30-35%. Left ventricle not well visualized. Right Ventricle Right ventricle not well visualized, grossly normal. Right Atrium Normal right atrial size. Left Atrium Mild left atrial dilatation. Mitral Valve Mild mitral annular calcification. Moderate mitral regurgitation. Aortic Valve Aortic valve not well visualized. Diffuse thickening (sclerosis) of the aortic valve cusps without reduced excursion. Tricuspid Valve Tricuspid valve not well visualized, grossly normal. Mild-to- moderate tricuspid regurgitation. Right ventricular systolic pressure estimated to be elevated at45 mmHg. Pulmonic Valve Pulmonic valve not well visualized, grossly normal. Pericardium No pericardial effusion. Great Vessels Normal size aortic root. CONCLUSIONS Poor Echo window. Moderate reduction in overall left ventricular systolic function. Moderate Mitral regurgitation. Mild to moderate Pulmonary ypertension. Rafa Levine M.D. (Electronically Signed) Final Date: 31 Oct 2016 21:33 MEASUREMENTS (Male / Female) Normal Values 2D ECHO LV Diastolic Diameter PLAX 5.4 cm 4.2 - 5.9 / 3.9 - 5.3 cm LV Systolic Diameter PLAX 4.5 cm 2.1 - 4.0 cm LV Fractional Shortening PLAX 16.7 % 25 - 46 % LV Ejection Fraction 2D Teich 34.6 % IVS Diastolic Thickness 1.3 cm LVPW Diastolic Thickness 1.1 cm LV Relative Wall Thickness 0.4 RV Internal Dim ED PLAX 2.3 cm 1.9 - 3.8 cm LVOT Diameter 2.1 cm Aortic Root Diameter 3.8 cm LA Systolic Diameter LX 4.4 cm 3.0 - 4.0 / 2.7 - 3.8 cm LV Ejection Fraction MOD BP 25.4 % >= 55 % LV Diastolic Length 4C 7.2 cm 6.9 - 10.3 cm LV Diastolic Area 4C 27.4 cm LV Diastolic Volume MOD 4C 85.0 cm LV Ejection Fraction MOD 4C 34.1 % LV Stroke Volume MOD 4C 29.0 cm LV Systolic Length 4C 6.5 cm LV Systolic Area 4C 20.9 cm LV Systolic Volume MOD 4C 56.0 cm LV Ejection Fraction MOD 2C 11.9 % LV Diastolic Volume 4C AL 88.6 cm 85 - 139 / 69 - 109 cm LV Systolic Volume 4C AL 56.9 cm LV Ejection Fraction 4C AL 35.8 % LV Stroke Volume 4C AL 31.8 cm LV Ejection Fraction 2C AL 17.9 % LA Volume 44.0 cm 18 - 58 / 22 - 52 cm Ascending Aorta Diameter 3.6 cm DOPPLER AV Peak Velocity 88.4 cm/s AV Peak Gradient 3.1 mmHg AV Mean Velocity 62.0 cm/s AV Mean Gradient 2.0 mmHg AV Velocity Time Integral 15.8 cm LVOT Peak Velocity 59.4 cm/s LVOT Peak Gradient 1.4 mmHg LVOT Mean Velocity 41.5 cm/s LVOT Mean Gradient 1.0 mmHg LVOT Velocity Time Integral 10.6 cm LVOT Stroke Volume 36.7 cm AV Area Cont Eq vti 2.3 cm AV Area Cont Eq pk 2.3 cm MV Peak Velocity 121.0 cm/s MV Peak Gradient 5.9 mmHg MV Mean Velocity 64.1 cm/s MV Mean Gradient 2.0 mmHg Mitral E Point Velocity 103.0 cm/s MV PHT Velocity 128.0 cm/s MV Deceleration Coryell 415.0 cm/s MV Pressure Half Time 92.5 ms MV Area PHT 2.4 cm MV Deceleration Time 135.0 ms MR Peak Velocity 466.0 cm/s MR Peak Gradient 86.9 mmHg MR ERO PISA 0.3 cm MR Regurgitant Volume PISA 43.7 cm TR Peak Velocity 299.0 cm/s TR Peak Gradient 35.8 mmHg Right Atrial Pressure 10.0 mmHg Pulmonary Artery Systolic Pressu 45.8 mmHg Right Ventricular Systolic Press 45.8 mmHg PV Peak Velocity 57.8 cm/s PV Peak Gradient 1.3 mmHg PV Mean Velocity 39.0 cm/s PV Mean Gradient 1.0 mmHg PV Velocity Time Integral 8.6 cm LV E' Lateral Velocity 5.7 cm/s Mitral E to LV E' Lateral Ratio 18.1 LV E' Septal Velocity 5.9 cm/s Mitral E to LV E' Septal Ratio 17.5
[2016-10-31 23:53] VITALS: BP 102/78
--- NOTE | 2016-11-01 07:38 | PN- Housestaff ---
LEN EAVNS 11/01/16 0737: Subjective Follow-up For: Acute CHF Lower extremity edema Shortness of breath Complaints: no complaints Tele-Events Since Last Visit: Sinus rhythm, heart rate ranges from 85-88, no overnight telemetry events Subjective: Patient was seen and examined this morning. He is sitting comfortably on bed doing his breakfast. He denied any current complaints. His blood sugars were 273, 249 postprandial, 178 at bedtime and 169 this morning. He was -304 fluid balance. His lower extremity edema is getting better but still present. He remained afebrile with temperature 98.1, pulse 88, respiratory rate 18, blood pressure 110/74 and he was saturating 95% at 2 L of nasal cannula and we will try to wean oxygen off today Review of Systems Constitutional: Denies: chills, diaphoresis. Cardiovascular: Reports: edema. Denies: chest pain. Respiratory: Denies: cough, hemoptysis. Gastrointestinal: Denies: bloating, diarrhea. Objective Last 24 Hrs of Vital Signs/I&O Vital Signs Date Time Temp Pulse Resp B/P B/P Pulse O2 O2 Flow FiO2 Mean Ox Delivery Rate 11/01 0803 98.1 88 18 110/74 95 Nasal 2.0L Cannula 11/01 0000 95 Nasal 2.0L Cannula 10/31 2353 98.4 89 18 102/78 93 Nasal Cannula 10/31 1641 98.6 84 18 120/80 94 Nasal Cannula 10/31 1120 Nasal 2.0L Cannula Intake & Output 11/01 1600 /04 0800 05/04 0000 Intake Total 200 240 Output Total 500 1750 Balance -300 -1510 Intake, Oral 200 240 Output, Urine 500 1750 Patient 190 lb Weight Weight Standing Scale Measurement Method Physical Exam General Appearance: Alert, Oriented X3, Cooperative, No Acute Distress Skin: No Significant Lesion Cardiovascular: Regular Rate, Normal S1, Normal S2, No Murmurs Lungs: mild bibasilar crackles Abdomen: Soft, No Tenderness Current Medications: Current Medications Sig/Aleksandar Start time Last Medication Dose Route Stop Time Status Admin Acetaminophen 650 MG Q6P PRN 10/30 2130 AC PO Aspirin 81 MG DAILY 10/31 1330 AC 05/03 PO 1715 Atorvastatin Calcium 40 MG 1700 10/31 1700 AC 05/03 PO 1715 Cholecalciferol 1,000 IU DAILY 05/03 1000 AC 10/31 PO 0949 Enoxaparin Sodium 40 MG DAILY 10/31 1000 AC 10/31 SC 0949 Furosemide 40 MG 0800 & 1700 10/31 0800 AC 10/31 IV 1715 Insulin Aspart 0 TIDAC/HS 10/31 1700 CAN SC Insulin Aspart 0 TIDAC 10/31 1700 AC 10/31 SC 1715 Insulin Aspart 0 TIDAC 10/31 0800 DC 10/31 SC 1229 Ketorolac 15 MG Q8P PRN 10/30 2130 AC Tromethamine IV Multivitamins 1 TAB DAILY 10/31 1000 AC 10/31 Therapeutic PO 0949 Oxycodone/ 2 TAB Q6P PRN 10/30 2130 AC Acetaminophen PO Polyethylene Glycol 17 GM DAILY 11/01 1000 UNVr PO Senna 187 MG AT BEDTIME PRN 11/01 0845 UNVr PO Last 24 Hrs of Lab/Steven Results Last 24 Hrs of Labs/Mics: Laboratory Tests 11/01/16 0645: Anion Gap 7, Estimated GFR > 60, BUN/Creatinine Ratio 27.1 H, CBC w Diff NO MAN DIFF REQ, RBC 4.58 L, MCV 90.6, MCH 29.7, RDW 13.6, MPV 8.1, Gran % 55.2, Lymphocytes % 30.4, Monocytes % 10.2 H, Eosinophils % 3.8, Basophils % 0.4, Absolute Granulocytes 4.1, Absolute Lymphocytes 2.2, Absolute Monocytes 0.8 H, Absolute Eosinophils 0.3, Absolute Basophils 0, PUBS MCHC 32.8 L 10/31/161853: Ur Random Creatinine 20.0, Ur Random Microalbumin < 0.6 10/31/161853: Urine Color YEL, Urine Clarity CLEAR, Urine pH 6.5, Ur Specific [place] 1.010, Urine Protein NEG, Urine Ketones NEG, Urine Nitrite NEG, Urine Bilirubin NEG, Urine Urobilinogen 0.2, Ur Leukocyte Esterase NEG, Ur Microscopic EXAM NOT REQUIRED, Urine Hemoglobin NEG, Urine Glucose 100 H Assessment/Plan Assessment: is a 61-year-old male with PMHx. of HTN, DM not in medications sent in by his primary doctor on the Efrain Valles MD for further evaluation of dyspnea with exertion and lower extremity edema. On admission his imaging studies as well as his labs and clinical examination was significant for CHF exacerbation. We'll admit patient on telemetry floor and will take it for the following problems Problem #1 lower extremity edema and shortness of breath most likely due to CHF exacerbation and ACS ruled out -Patient was started on IV Lasix and will continue intravenous diuresis for now and will change it to oral later and will strictly monitor his intakes and outputs. His fluid balance is -300. -Echocardiogram was done yesterday that showed significantly low ejection fraction to 30-35%. Moderate mitral regurg and mild to moderate pulmonary hypertension was also noted -Patient was evaluated by cardiology today. We will start him on Capoten 6.25 mg every 8 hours from today and we will increase to 12.5 in 48 hours. But we will change it to lisinopril 10 mg daily on discharge for compliance We will consider starting him on metoprolol succinate 25 mg daily from tomorrow and that can be increased as outpatient later Problem #2 diabetes mellitus not on any hypoglycemic agents at home -Accu-Cheks 3 times a day/allergies -We will cover with high-dose NovoLog according to sliding scale in the hospital but will consider starting patient on metformin on discharge and patient will follow up with his PCP for further stepping up therapy. 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 Problem List: 1. CHF exacerbation Pain Ratin Pain Location: Not applicable Pain Goal: Remain pain free Pain Plan: Tylenol Tomorrow's Labs & Rationales: BEP JIM SALCEDO,HAMMAD 11/01/16 1354: Attending MD Review Statement Attending Statement Attending MD Statement: examined this patient, discuss w/resident/PA/FORMATION FRACTURING OPERATOR, agreed w/resident/PA/FORMATION FRACTURING OPERATOR, reviewed EMR data (avail), discussed with nursing, discussed with case mgmt, reviewed images, amended to note Attending Assessment/Plan: Patient seen and examined, claims that he's feeling the same. Lower externally swelling is slightly better. His oxygen requirement has slightly improved. Vital Signs Date Time Temp Pulse Resp B/P B/P Pulse O2 O2 Flow FiO2 Mean Ox Delivery Rate 11/01 0803 98.1 88 18 110/74 95 Nasal 2.0L Cannula 11/01 0800 95 Nasal 1.0L Cannula 11/01 0000 95 Nasal 2.0L Cannula 10/31 2353 98.4 89 18 102/78 93 Nasal Cannula 10/31 1641 98.6 84 18 120/80 94 Nasal Cannula on exam; aox3, nad. cv; s1,s2, rrr resp; mostly clear abd; soft, nt, bs+ ext; 2+ edema. Laboratory Tests 11/01 10/31 0645 1854 Chemistry Sodium (137 - 145 mmol/L) 134 L Potassium (3.5 - 5.1 mmol/L) 4.0 Chloride (98 - 107 mmol/L) 99 Carbon Dioxide (22 - 30 mmol/L) 29 Anion Gap (5 - 16) 7 BUN (9 - 20 mg/dL) 19 Creatinine (0.7 - 1.2 mg/dL) 0.7 Estimated GFR (>60 ml/min) > 60 BUN/Creatinine Ratio (7 - 25 %) 27.1 H Hematology CBC w Diff NO MAN DIFF REQ WBC (4.8 - 10.8 /CUMM) 7.4 RBC (4.70 - 6.10 /CUMM) 4.58 L Hgb (14.0 - 18.0 G/DL) 13.6 L Hct (42 - 52 %) 41.5 L MCV (80.0 - 94.0 FL) 90.6 MCH (27.0 - 31.0 PG) 29.7 RDW (11.5 - 14.5 %) 13.6 Plt Count (130 - 400 /CUMM) 231 MPV (7.4 - 10.4 FL) 8.1 Gran % (42.2 - 75.2 %) 55.2 Lymphocytes % (20.5 - 51.1 %) 30.4 Monocytes % (1.7 - 9.3 %) 10.2 H Eosinophils % (0 - 5 %) 3.8 Basophils % (0.0 - 2.0 %) 0.4 Absolute Granulocytes (1.4 - 6.5 /CUMM) 4.1 Absolute Lymphocytes (1.2 - 3.4 /CUMM) 2.2 Absolute Monocytes (0.10 - 0.60 /CUMM) 0.8 H Absolute Eosinophils (0.0 - 0.7 /CUMM) 0.3 Absolute Basophils (0.0 - 0.2 /CUMM) 0 PUBS MCHC (33.0 - 37.0 G/DL) 32.8 L Urines Ur Random Creatinine (mg/dL) 20.0 Ur Random Microalbumin (<1.7 mg/dl) < 0.6 10/31 1854 Urines Urine Color (YEL,AMB,STR) YEL Urine Clarity (CLEAR) CLEAR Urine pH (5.0 - 8.0) 6.5 Ur Specific [place] (1.001 - 1.035) 1.010 Urine Protein (NEG,<30 MG/DL) NEG Urine Ketones (NEG) NEG Urine Nitrite (NEG) NEG Urine Bilirubin (NEG) NEG Urine Urobilinogen (0.1 - 1.0 EU/dl) 0.2 Ur Leukocyte Esterase (NEG) NEG Ur Microscopic EXAM NOT REQUIRED Urine Hemoglobin (NEG) NEG Urine Glucose (N MG/DL) 100 H A/P; 61 y/o M with pmh sig for diabetes, htn admitted with sob, found to have Acute CHF, ECHO results pending. Started on IV lasix. Echocardiogram showing heart failure with reduced ejection fraction. Please repeat chest x-ray. Per cardiology, started on MEDARDO inhibitor. Likely tomorrow we will be able to switch him to oral Lasix if patient continues to improve. Will add beta viridiana tomorrow if blood pressure allows as per cardiology. DVT prophylaxis: Lovenox. Possible discharge tomorrow.
[2016-11-01 07:46] LABS: ABSOLUTE BASOPHIL COUNT 0 /CUMM (0.0-0.2); ABSOLUTE EOSINOPHIL COUNT 0.3 /CUMM (0.0-0.7); ABSOLUTE GRANULOCYTE CT 4.1 /CUMM (1.4-6.5); ABSOLUTE LYMPH COUNT 2.2 /CUMM (1.2-3.4); ABSOLUTE MONOCYTE COUNT 0.8 /CUMM (0.10-0.60); BASOPHIL % 0.4 % (0.0-2.0); EOSINOPHIL % 3.8 % (0-5); GRANULOCYTE % 55.2 % (42.2-75.2); HEMATOCRIT 41.5 % (42-52); MEAN CORPUSCULAR HGB 29.7 PG (27.0-31.0); MEAN CORPUSCULAR HGB CONC 32.8 G/DL (33.0-37.0); MEAN CORPUSCULAR VOLUME 90.6 FL (80.0-94.0); MEAN PLATELET VOLUME 8.1 FL (7.4-10.4); PLATELET COUNT 231 /CUMM (130-400); RBC DISTRIBUTION WIDTH 13.6 % (11.5-14.5); RED BLOOD CELL CT 4.58 /CUMM (4.70-6.10); WHITE BLOOD CELL COUNT 7.4 /CUMM (4.8-10.8)
[2016-11-01 08:03] VITALS: BP 110/74
--- NOTE | 2016-11-01 08:34 | PN- Cardiology ---
Subjective Subjective: No cardiac events overnight. Telemetry reveals sinus rhythm. Objective Vital Signs and I&Os Vital Signs Date Time Temp Pulse Resp B/P B/P Pulse O2 O2 Flow FiO2 Mean Ox Delivery Rate 11/01 0803 98.1 88 18 110/74 95 Nasal 2.0L Cannula 11/01 0000 95 Nasal 2.0L Cannula 10/31 2353 98.4 89 18 102/78 93 Nasal Cannula 10/31 1641 98.6 84 18 120/80 94 Nasal Cannula 10/31 1120 Nasal 2.0L Cannula Intake & Output 11/01 1600 11/01 0800 11/01 0000 10/31 1600 10/31 0800 10/31 0000 Intake Total 200 240 480 50 Output Total 500 1750 913 257 0763 Balance -300 -1510 -270 -750 -1100 Intake, Oral 200 240 480 50 Output, Urine 500 1750 660 285 8774 Patient 190 lb 193 lb 197 lb Weight Weight Standing Scale Standing Scale Chair scale Measurement Method Physical Exam: Gen. exam patient sitting at the edge of the bed having breakfast. Claims to feel "much better". Head normocephalic atraumatic Eyes, sclera anicteric conjunctiva showed no pallor extraocular muscles were normal. Neck mild jugular venous distention. No thyroid masses no palpable nodes Chest lungs revealed slightly decreased air entry in both bases Heart regular rhythm with a grade 2 to 3/6 midsystolic murmur in the apex. Abdomen soft no organomegaly bowel sounds normal Extremities no clubbing cyanosis or pedal edema. Neurological no gross motor or sensory deficits Current Medications: Current Medications Sig/Aleksandar Start time Last Medication Dose Route Stop Time Status Admin Acetaminophen 650 MG Q6P PRN 10/30 2130 AC PO Aspirin 81 MG DAILY 10/31 1330 AC 05/ PO 1715 Atorvastatin Calcium 40 MG 1700 10/31 1700 AC 05/ PO 1715 Cholecalciferol 1,000 IU DAILY 05/ 1000 AC 05/ PO 0949 Enoxaparin Sodium 40 MG DAILY / 1000 AC 05/ SC 0949 Furosemide 40 MG 0800 & 1700 05/ 0800 AC 05/03 IV 1715 Insulin Aspart 0 TIDAC/HS / 1700 CAN SC Insulin Aspart 0 TIDAC / 1700 AC / SC 1715 Insulin Aspart 0 TIDAC 10/31 0800 DC 05/ SC 1229 Ketorolac 15 MG Q8P PRN 10/30 2129 AC Tromethamine IV Multivitamins 1 TAB DAILY 10/31 1000 AC 10/31 Therapeutic PO 0949 Oxycodone/ 2 TAB Q6P PRN 10/30 2129 AC Acetaminophen PO Results Last 48 Hrs of Labs/Mics: Laboratory Tests 11/01/16 0645: Anion Gap 7, Estimated GFR > 60, BUN/Creatinine Ratio 27.1 H, CBC w Diff NO MAN DIFF REQ, RBC 4.58 L, MCV 90.6, MCH 29.7, RDW 13.6, MPV 8.1, Gran % 55.2, Lymphocytes % 30.4, Monocytes % 10.2 H, Eosinophils % 3.8, Basophils % 0.4, Absolute Granulocytes 4.1, Absolute Lymphocytes 2.2, Absolute Monocytes 0.8 H, Absolute Eosinophils 0.3, Absolute Basophils 0, PUBS MCHC 32.8 L 10/31/16 185: Ur Random Creatinine 20.0, Ur Random Microalbumin < 0.6 10/31/161853: Urine Color YEL, Urine Clarity CLEAR, Urine pH 6.5, Ur Specific [place] 1.010, Urine Protein NEG, Urine Ketones NEG, Urine Nitrite NEG, Urine Bilirubin NEG, Urine Urobilinogen 0.2, Ur Leukocyte Esterase NEG, Ur Microscopic EXAM NOT REQUIRED, Urine Hemoglobin NEG, Urine Glucose 100 H 10/31/16 0710: Anion Gap 9, Estimated GFR > 60, BUN/Creatinine Ratio 22.9, Hemoglobin A1c 11.8 H, Troponin I 0.05, Triglycerides 71, Cholesterol 120, LDL Cholesterol, Calc 76, HDL Cholesterol 30 L, Cholesterol/HDL Ratio 4, CBC w Diff NO MAN DIFF REQ, RBC 4.81, MCV 90.3, MCH 30.1, RDW 13.9, MPV 7.8, Gran % 51.7, Lymphocytes % 32.5, Monocytes % 12.0 H, Eosinophils % 3.4, Basophils % 0.4, Absolute Granulocytes 3.5, Absolute Lymphocytes 2.2, Absolute Monocytes 0.8 H, Absolute Eosinophils 0.2, Absolute Basophils 0, PUBS MCHC 33.3 10/31/16 0025: Troponin I 0.05 10/30/16 1758: Anion Gap 9, Estimated GFR > 60, BUN/Creatinine Ratio 24.3, Glucose 299 H, Calcium 8.5, Magnesium 1.6, Total Bilirubin 0.9, AST 19, ALT 50, Alkaline Phosphatase 91, Troponin I 0.04, [id number]-B-Ypcczlunlfh Pept 3510 H, Total Protein 6.0 L, Albumin 3.2 L, Globulin 2.8, Albumin/Globulin Ratio 1.1, TSH 2.580, CBC w Diff NO MAN DIFF REQ, RBC 4.98, MCV 90.3, MCH 29.8, RDW 13.8, MPV 7.6, Gran % 63.4, Lymphocytes % 24.3, Monocytes % 10.4 H, Eosinophils % 1.7, Basophils % 0.2, Absolute Granulocytes 4.6, Absolute Lymphocytes 1.7, Absolute Monocytes 0.8 H, Absolute Eosinophils 0.1, Absolute Basophils 0.0, PUBS MCHC 33.1, Acetone Level NEGATIVE Assessment/Plan Assessment/Plan In summary this 61-year-old gentleman has the following problems #1. Congestive heart failure based on systolic dysfunction.. #2. Dilated cardiomyopathy with left ventricular ejection fraction of about 35% . Moderate mitral regurgitation. Somewhat poor echo window. #3. Uncontrolled diabetes. #4. History of hypertension. #5. Lost to medical follow-up on to this admission. X I would suggest starting him on Capoten 6.5 mg every 8 hours, in 48 hours increasing to 12.5 mg by mouth every 8 hours. Upon discharge and for compliance , Capoten can be changed to a longer acting MEDARDO inhibitor viz lisinopril, at 10 mg a day. In 24-hour laughter starting Capoten I would attempt to initiate metoprolol succinate at 25 mg a day. That medication can be increased as an outpatient. From a clinical standpoint and from intake output summary he has had significant negative balance and his oxygen saturations are satisfactory on 2 L. I would decrease intravenous Lasix to 20 mg IV today, recheck chest x-ray and if improved from admission changed to Lasix 40 mg orally daily. He will need workup for ischemic heart disease. Continue aspirin and statin therapy. Continue telemetry? Yes
[2016-11-01] MEDS ORDERED: ATORVASTATIN CA40 M1 PO (13:49)
[2016-11-01] MEDS ORDERED: LASIX40 M1 PO (13:49)
[2016-11-01] MEDS ORDERED: TOPROL XL25 M1 PO (13:49)
[2016-11-01] MEDS ORDERED: LISINOPRIL10 M1 PO (13:49)
[2016-11-01] MEDS ORDERED: ASPIRIN81 M4 PO (13:49)
--- NOTE | 2016-11-01 13:55 | Patient Discharge Instructions ---
Discharge Instructions General Discharge Information You were seen/treated for: Congestive heart failure DM Special Instructions: Please follow up with your primary care physician in one week of discharge Please follow up with your supervisor respiratory in one week of discharge and he will guid your regarding any changes in your medications Please take medications for your Diabetese as prescribed and your PCP will take care of further management and change in your diabetese medications if needed. Diet Recommended Diet: Diabetic, Heart Healthy Activity Additional ACTIVITY Info: as tolerated with assistance Acute Coronary Syndrome Inclusion Criteria At DC or during hospital stay patient has or had the following: ACS DIAGNOSIS No Discharge Core Measures Meds if any: Prescribed or Continued at Discharge Meds if any: NOT Prescribed or Continued at Discharge Congestive Heart Failure Inclusion Criteria At DC or during hospital stay patient has or had the following: CHF DIAGNOSIS Yes Discharge Core Measures Meds if any: Prescribed or Continued at Discharge MEDAROD/ARB for EF <40% Yes Meds if any: NOT Prescribed or Continued at Discharge Cerebrovascular accident Inclusion Criteria At DC or during hospital stay patient has or had the following: CVA/TIA Diagnosis No Discharge Core Measures Meds if any: Prescribed or Continued at Discharge Meds if any: NOT Prescribed or Continued at Discharge Venous thromboembolism Inclusion Criteria VTE Diagnosis No VTE Type NONE VTE Confirmed by (Test) NONE Discharge Core Measures - Per Current guidelines, there needs to be overlap - treatment for the first 5 days of Warfarin therapy. - If discharged on Warfarin prior to 5 days of - overlap therapy, the patient will need to be - assessed for post discharge needs including - *Post discharge parental anticoagulation - *Warfarin and/or parental anticoagulation education - *Follow up date to check INR post discharge At least 5 days overlap therapy as Inpatient No Meds if any: Prescribed or Continued at Discharge Note: Overlap Therapy is Warfarin and Anticoagulant Meds if any: NOT Prescribed or Continued at Discharge
--- NOTE | 2016-11-01 13:56 | Discharge Summary ---
See Addendum Visit Information Visit Dates Admission Date: 10/30/16 Discharge Date: 11/03/16 Hospital Course Course Attending Physician: DON THORNTON MD Primary Care Physician: JOHN SALCEDO,UDAY Maldonado Hospital Course: Patient is 61-year-old gentleman with past medical history significant for diabetes and hypertension but she was not seen any physician for last 9-10 years. Patient was presented to the emergency room after he was seen by his PCP and PCP noticed some EKG changes in terms of Q waves in V1 and V2, worsening lower extremity edema and shortness of breath, dry cough, congested feeling in his chest and choking while eating, unable to lie flat. Vital signs and examination on admission were Vitals: Afebrile, HR 106 at presentation, RR 24, blood pressure 158/93, saturating 88% on room air, improved with 3 L nasal cannula to 94% On examination: A O 3, cooperative, moderate respiratory distress, accessory muscles in use, neck supple, JVD elevated, no lymphadenopathy, mucosa moist, no focal neurological deficit, severe pitting edema bilateral lower extremities, no obvious skin rashes or inflammation except some superficial breakdowns on shins. CVS: S1-S2, RRR . RS: Bibasilar crackles. Abdomen: Soft, NT, distended bowel sounds present. Peripheral pulses perfusion normal Labs CBC unremarkable, glucose 299, bicarbonate 26, BUN 17, creatinine 0.7, anion gap 9, proBNP 3510, troponin 0.04 EKG: ?Q waves V1 and lead 3, no comparison available Chest x-ray: Small to moderate bilateral pleural effusions. Prominence of the cardiac silhouette. Prominent interstitial lung markings could reflect interstitial pulmonary edema. Limited evaluation for alveolar edema given obscuration of the bilateral hilar regions by bilateral pleural effusions. Patient was admitted on telemetry floor and following issues were addressed 1. Progressive exertional dyspnea likely due to new onset congestive heart failure 2. Pleural effusions 3. Diabetes, uncontrolled 4. Reported history of hypertension 5. Abnormal ECG While patient was monitoring on telemetry floor he was initially started on IV Lasix 40 mg daily and change to 20 mg IV and later on was changed to oral on discharge. His echocardiogram was also done that showed reduced ejection fraction to 30-35% most likely due to dilated cardiomyopathy and was started on captopril which will be changed to lisinopril on discharge. Patient would be discharged on metoprolol as well as aspirin and statin. His other issue was diabetes which she was diagnosed many years ago and was started on metformin which he discontinued on his own and was not on any medication for many years. His hemoglobin A1c was 11.8. During his hospital stay he was provided with insulin according to sliding scale with 3 times a day/ at bedtime Accu-Cheks. His blood sugars were fluctuating between 200-320 post perineal and fasting in 160s. Patient would be discharged on metformin and he will follow up with primary care physician for further stepup on his medication or any edition with hemoglobin A1c follow-up in 3 months Patient was instructed to follow up with primary care physician and mirror specialist as outpatient within 1 week of discharge She was also counseled for medication and physician visits compliance Complications: None Allergies: Coded Allergies: No Known Allergies (10/30/16) Significant Procedures: PATIENT: CLAY ESPINOSA PRESENT AGE: 61 PATIENT ACCOUNT NO: [id number] : 55 LOCATION: [facility] ORDERING PHYSICIAN: TRAVIS GUEVARA MD SERVICE DATE: 10/31/16- EXAM TYPE: CARD - ECHOCARDIOGRAM ADDENDUM: CLAY ESPINOSA Age: 61 : 1955 Gender: M Exam Date: 10/31/2016 19:03 Exam Location: [place] Ht (in): 67 Wt (lb): 193 BSA: 2.06 BP: 120 / 82 Ordering Physician: TRAVIS GUEVARA MD Referring Physician: Stanley Turner M.D. Technologist: Patricia Michelle [facility] Room Number: 189-02 Indications: SHORTNESS OF BREATH, ASSESS LVF Rhythm: Sinus Technical Quality: fair to poor FINDINGS Left Ventricle Normal size left ventricle. Moderately abnormal left ventricular ejection fraction estimated at 30-35%. Left ventricle not well visualized.Inferior and inferior apical segments appear severely hypokinetic. Right Ventricle Right ventricle not well visualized, grossly normal. Right Atrium Normal right atrial size. Left Atrium Mild left atrial dilatation. Mitral Valve Mild mitral annular calcification. Moderate to severe mitral regurgitation. Aortic Valve Aortic valve not well visualized. Diffuse thickening (sclerosis) of the aortic valve cusps without reduced excursion.Mild Aortic regurgitation. Tricuspid Valve Tricuspid valve not well visualized, grossly normal. Mild-to- moderate tricuspid regurgitation. Right ventricular systolic pressure estimated to be elevated at45 mmHg. Pulmonic Valve Pulmonic valve not well visualized, grossly normal. Pericardium No pericardial effusion. Great Vessels Normal size aortic root. CONCLUSIONS Poor Echo window. Moderate reduction in overall left ventricular systolic function.Suggestion on inferior and inferoapical hypokinesia. Moderate to severe Mitral regurgitation. Mild to moderate Pulmonary ypertension. Liana Levine M.D. (Electronically Signed) Final Date: 31 Oct 2016 21:33 Amended: 01 Nov 2016 10:50 MEASUREMENTS (Male / Female) Normal Values 2D ECHO LV Diastolic Diameter PLAX 5.4 cm 4.2 - 5.9 / 3.9 - 5.3 cm LV Systolic Diameter PLAX 4.5 cm 2.1 - 4.0 cm LV Fractional Shortening PLAX 16.7 % 25 - 46 % LV Ejection Fraction 2D Teich 34.6 % IVS Diastolic Thickness 1.3 cm LVPW Diastolic Thickness 1.1 cm LV Relative Wall Thickness 0.4 RV Internal Dim ED PLAX 2.3 cm 1.9 - 3.8 cm LVOT Diameter 2.1 cm Aortic Root Diameter 3.8 cm LA Systolic Diameter LX 4.4 cm 3.0 - 4.0 / 2.7 - 3.8 cm LV Ejection Fraction MOD BP 25.4 % >= 55 % LV Diastolic Length 4C 7.2 cm 6.9 - 10.3 cm LV Diastolic Area 4C 27.4 cm LV Diastolic Volume MOD 4C 85.0 cm LV Ejection Fraction MOD 4C 34.1 % LV Stroke Volume MOD 4C 29.0 cm LV Systolic Length 4C 6.5 cm LV Systolic Area 4C 20.9 cm LV Systolic Volume MOD 4C 56.0 cm LV Ejection Fraction MOD 2C 11.9 % LV Diastolic Volume 4C AL 88.6 cm 85 - 139 / 69 - 109 cm LV Systolic Volume 4C AL 56.9 cm LV Ejection Fraction 4C AL 35.8 % LV Stroke Volume 4C AL 31.8 cm LV Ejection Fraction 2C AL 17.9 % LA Volume 44.0 cm 18 - 58 / 22 - 52 cm Ascending Aorta Diameter 3.6 cm DOPPLER AV Peak Velocity 88.4 cm/s AV Peak Gradient 3.1 mmHg AV Mean Velocity 62.0 cm/s AV Mean Gradient 2.0 mmHg AV Velocity Time Integral 15.8 cm LVOT Peak Velocity 59.4 cm/s LVOT Peak Gradient 1.4 mmHg LVOT Mean Velocity 41.5 cm/s LVOT Mean Gradient 1.0 mmHg LVOT Velocity Time Integral 10.6 cm LVOT Stroke Volume 36.7 cm AV Area Cont Eq vti 2.3 cm AV Area Cont Eq pk 2.3 cm MV Peak Velocity 121.0 cm/s MV Peak Gradient 5.9 mmHg MV Mean Velocity 64.1 cm/s MV Mean Gradient 2.0 mmHg Mitral E Point Velocity 103.0 cm/s MV PHT Velocity 128.0 cm/s MV Deceleration Caroline 415.0 cm/s MV Pressure Half Time 92.5 ms MV Area PHT 2.4 cm MV Deceleration Time 135.0 ms MR Peak Velocity 466.0 cm/s MR Peak Gradient 86.9 mmHg MR ERO PISA 0.3 cm MR Regurgitant Volume PISA 43.7 cm TR Peak Velocity 299.0 cm/s TR Peak Gradient 35.8 mmHg Right Atrial Pressure 10.0 mmHg Pulmonary Artery Systolic Pressu 45.8 mmHg Right Ventricular Systolic Press 45.8 mmHg PV Peak Velocity 57.8 cm/s PV Peak Gradient 1.3 mmHg PV Mean Velocity 39.0 cm/s PV Mean Gradient 1.0 mmHg PV Velocity Time Integral 8.6 cm LV E' Lateral Velocity 5.7 cm/s Mitral E to LV E' Lateral Ratio 18.1 LV E' Septal Velocity 5.9 cm/s Mitral E to LV E' Septal Ratio 17.5 Addendum Signed by: LIANA LEVINE MD 11/01/16 CLAY POSADA Age: 61 : 1955 Gender: M Exam Date: 10/31/2016 19:03 Exam Location: 1 [place] Ht (in): 67 Wt (lb): 193 BSA: 2.06 BP: 120 / 82 Ordering Physician: TRAVIS GUEVARA MD Referring Physician: Stanley Turner M.D. Technologist: Patricia Michelle [facility] Room Number: 189-02 Indications: SHORTNESS OF BREATH, ASSESS LVF Rhythm: Technical Quality: fair to poor FINDINGS Left Ventricle Normal size left ventricle. Moderately abnormal left ventricular ejection fraction estimated at 30-35%. Left ventricle not well visualized. Right Ventricle Right ventricle not well visualized, grossly normal. Right Atrium Normal right atrial size. Left Atrium Mild left atrial dilatation. Mitral Valve Mild mitral annular calcification. Moderate mitral regurgitation. Aortic Valve Aortic valve not well visualized. Diffuse thickening (sclerosis) of the aortic valve cusps without reduced excursion. Tricuspid Valve Tricuspid valve not well visualized, grossly normal. Mild-to- moderate tricuspid regurgitation. Right ventricular systolic pressure estimated to be elevated at45 mmHg. Pulmonic Valve Pulmonic valve not well visualized, grossly normal. Pericardium No pericardial effusion. Great Vessels Normal size aortic root. CONCLUSIONS Poor Echo window. Moderate reduction in overall left ventricular systolic function. Moderate Mitral regurgitation. Mild to moderate Pulmonary ypertension. Liana Levine M.D. (Electronically Signed) Final Date: 31 Oct 2016 21:33 MEASUREMENTS (Male / Female) Normal Values 2D ECHO LV Diastolic Diameter PLAX 5.4 cm 4.2 - 5.9 / 3.9 - 5.3 cm LV Systolic Diameter PLAX 4.5 cm 2.1 - 4.0 cm LV Fractional Shortening PLAX 16.7 % 25 - 46 % LV Ejection Fraction 2D Teich 34.6 % IVS Diastolic Thickness 1.3 cm LVPW Diastolic Thickness 1.1 cm LV Relative Wall Thickness 0.4 RV Internal Dim ED PLAX 2.3 cm 1.9 - 3.8 cm LVOT Diameter 2.1 cm Aortic Root Diameter 3.8 cm LA Systolic Diameter LX 4.4 cm 3.0 - 4.0 / 2.7 - 3.8 cm LV Ejection Fraction MOD BP 25.4 % >= 55 % LV Diastolic Length 4C 7.2 cm 6.9 - 10.3 cm LV Diastolic Area 4C 27.4 cm LV Diastolic Volume MOD 4C 85.0 cm LV Ejection Fraction MOD 4C 34.1 % LV Stroke Volume MOD 4C 29.0 cm LV Systolic Length 4C 6.5 cm LV Systolic Area 4C 20.9 cm LV Systolic Volume MOD 4C 56.0 cm LV Ejection Fraction MOD 2C 11.9 % LV Diastolic Volume 4C AL 88.6 cm 85 - 139 / 69 - 109 cm LV Systolic Volume 4C AL 56.9 cm LV Ejection Fraction 4C AL 35.8 % LV Stroke Volume 4C AL 31.8 cm LV Ejection Fraction 2C AL 17.9 % LA Volume 44.0 cm 18 - 58 / 22 - 52 cm Ascending Aorta Diameter 3.6 cm DOPPLER AV Peak Velocity 88.4 cm/s AV Peak Gradient 3.1 mmHg AV Mean Velocity 62.0 cm/s AV Mean Gradient 2.0 mmHg AV Velocity Time Integral 15.8 cm LVOT Peak Velocity 59.4 cm/s LVOT Peak Gradient 1.4 mmHg LVOT Mean Velocity 41.5 cm/s LVOT Mean Gradient 1.0 mmHg LVOT Velocity Time Integral 10.6 cm LVOT Stroke Volume 36.7 cm AV Area Cont Eq vti 2.3 cm AV Area Cont Eq pk 2.3 cm MV Peak Velocity 121.0 cm/s MV Peak Gradient 5.9 mmHg MV Mean Velocity 64.1 cm/s MV Mean Gradient 2.0 mmHg Mitral E Point Velocity 103.0 cm/s MV PHT Velocity 128.0 cm/s MV Deceleration Caroline 415.0 cm/s MV Pressure Half Time 92.5 ms MV Area PHT 2.4 cm MV Deceleration Time 135.0 ms MR Peak Velocity 466.0 cm/s MR Peak Gradient 86.9 mmHg MR ERO PISA 0.3 cm MR Regurgitant Volume PISA 43.7 cm TR Peak Velocity 299.0 cm/s TR Peak Gradient 35.8 mmHg Right Atrial Pressure 10.0 mmHg Pulmonary Artery Systolic Pressu 45.8 mmHg Right Ventricular Systolic Press 45.8 mmHg PV Peak Velocity 57.8 cm/s PV Peak Gradient 1.3 mmHg PV Mean Velocity 39.0 cm/s PV Mean Gradient 1.0 mmHg PV Velocity Time Integral 8.6 cm LV E' Lateral Velocity 5.7 cm/s Mitral E to LV E' Lateral Ratio 18.1 LV E' Septal Velocity 5.9 cm/s Mitral E to LV E' Septal Ratio 17.5 DICTATED BY: JAMEY SALCEDO,LIANA Camacho DATE/TIME DICTATED:10/31/162133 [employer] OPERATOR:VANESSA DATE/TIME TRANSCRIBED:10/31/162133 Pertinent Lab Results: PATIENT: CLAY ESPINOSA PRESENT AGE: 61 PATIENT ACCOUNT NO: [id number] : 55 LOCATION: [facility] ORDERING PHYSICIAN: KASH ALVARENGA SERVICE DATE: 10/30/16 EXAM TYPE: RAD - XRY-CHEST XRAY, PA AND LATERAL EXAMINATION: XR CHEST CLINICAL INFORMATION: Dyspnea on exertion. Lower extremity edema. COMPARISON: None. TECHNIQUE: 2 views of the chest were obtained. FINDINGS: Multiple views of the chest demonstrate pulmonary hypoinflation. There is blunting of the bilateral costophrenic angles, indicative of small to moderate bilateral pleural effusions. Cardiac mediastinal contours are obscured. However, the cardiac silhouette appears to be prominent. There are prominent bilateral interstitial lung markings which could reflect interstitial pulmonary edema. No pneumothoraces. No visible acute osseous abnormality. IMPRESSION: Small to moderate bilateral pleural effusions. Prominence of the cardiac silhouette. Prominent interstitial lung markings could reflect interstitial pulmonary edema. Limited evaluation for alveolar edema given obscuration of the bilateral hilar regions by bilateral pleural effusions. Disposition Summary Disposition Principal Diagnosis: Acute CHF Additional Diagnosis: Diabetes mellitus Discharge Disposition: home or self care Discharge Instructions General Discharge Information Code Status: Do Not Resucitate/Intubat Patient's Diet: Heart healthy diet Diabetic diet Patient's Activity: As tolerated Follow-Up Instructions/Appts: Please follow up with your primary care physician in one week of discharge Please follow up with your mirror specialist in one week of discharge and he will guid your regarding any changes in your medications Please take medications for your Diabetese as prescribed and your PCP will take care of further management and change in your diabetese medications if needed. Medications at Discharge Discharge Medications: Continue taking these medications: Multivitamin (Multi-Day Vitamins) 1 EACH TABLET 1 Tablet ORAL DAILY Comments: Last Taken: 11/03/16 Time: 9 AM Cholecalciferol (Vitamin D3) (Vitamin D) 2,000 UNIT CAPSULE 1 Capsule ORAL DAILY Comments: Last Taken: 11/03/16 Time: 9 AM Start taking the following new medications: Atorvastatin Calcium (Atorvastatin Calcium) 40 MG TABLET 40 Milligram ORAL 5 PM Days = 30 No Refills Comments: Last Taken: 11/02/16 Time: 6 PM Aspirin (Aspirin*) 81 MG TAB.CHEW 81 Milligram ORAL DAILY Days = 30 No Refills Comments: Last Taken: 11/03/16 Time: 9 AM Furosemide (Lasix) 40 MG TABLET 1 Tablet ORAL DAILY Days = 30 No Refills Comments: Last Taken: 11/03/16 Time: 9 AM Metformin HCl (Metformin HCl) 500 MG TABLET 1 Tablet ORAL TWICE DAILY Days = 30 No Refills Comments: NOT GIVEN IN HOSPITAL Lisinopril (Lisinopril) 5 MG TABLET 1 Tablet ORAL DAILY Days = 30 No Refills Comments: Last Taken: 11/02/16 Time: 6 PM Carvedilol (Coreg) 3.125 MG TABLET 1 Tablet ORAL TWICE DAILY Qty = 60 No Refills Comments: Last Taken: 11/03/16 Time: 10:30 AM Copies To: JOHN SALCEDO,UDAY Maldonado Attending MD Review Statement Documenting Attending: HAMMAD FERNANDEZ MD
[2016-11-01] MEDS ORDERED: METFORMIN HCL500 M3 PO (14:06)
[2016-11-01 15:44] VITALS: BP 108/70
--- NOTE | 2016-11-01 18:28 | RADIOLOGY REPORT ---
EXAMINATION: XR PORTABLE CHEST CLINICAL INFORMATION: Short of breath and edema. COMPARISON: 10/30/2016. TECHNIQUE: Portable frontal view of the chest was obtained. FINDINGS: Lung volumes remain diminished. There is persistent cephalization of the pulmonary vasculature, however increased interstitial markings appears improved. There are residual small bilateral pleural effusions slightly greater on the left side than the right with associated atelectasis, infiltrate thought to be less likely although not excluded, especially in the retrocardiac left lower lobe. There is no evidence of a pneumothorax. IMPRESSION: Findings most consistent with improving pulmonary edema with residual pleural effusions and atelectasis versus infiltrate.
[2016-11-01 23:16] VITALS: BP 114/70
--- NOTE | 2016-11-02 08:17 | PN- Housestaff ---
LEN EVANS 11/02/16 0817: Subjective Follow-up For: Acute CHF Lower extremity edema Shortness of breath Diabetes mellitus Complaints: no complaints Tele-Events Since Last Visit: Normal sinus rhythm in 80s with no overnight telemetry event Subjective: Patient was seen and examined this morning. He was sitting comfortably on bed without any complaints. His edema is significantly reduced. He remained afebrile but still needs 1 L of oxygen through nasal cannula to saturate more than 90%. We will try to wean oxygen off today Review of Systems Constitutional: Denies: fever, malaise, weakness. Cardiovascular: Reports: edema. Denies: chest pain. Respiratory: Denies: cough, hemoptysis, orthopnea. Gastrointestinal: Denies: constipation, diarrhea. Genitourinary: Denies: dysuria, frequency. Skin: Reports: see HPI. Objective Last 24 Hrs of Vital Signs/I&O Vital Signs Date Time Temp Pulse Resp B/P B/P Pulse O2 O2 Flow FiO2 Mean Ox Delivery Rate 11/02 0921 90 100/64 11/02 0820 98.8 90 18 100/64 94 Nasal 1.0L Cannula / 0000 Nasal 1.0L Cannula 11/01 2316 99.1 90 18 114/70 93 Nasal 1.0L Cannula 11/01 2122 90 112/78 05/ 1600 95 Nasal 1.0L Cannula 11/01 1544 98.5 83 18 108/70 95 05/04 1434 90 102/64 Intake & Output 11/02 1600 05/05 0800 05/ 0000 Intake Total 520 Output Total 700 Balance -180 Intake, Oral 520 Output, Urine 700 Patient 184 lb Weight Weight Standing Scale Measurement Method Physical Exam General Appearance: Alert, Oriented X3, Cooperative, No Acute Distress Cardiovascular: Regular Rate, Normal S1, Normal S2, No Murmurs Lungs: SLIGHTLY REDUCED AIR ENTRY Abdomen: Soft Extremities: 1= LOWER EXTREMITY EDEMA Current Medications: Current Medications Sig/Aleksandar Start time Last Medication Dose Route Stop Time Status Admin Acetaminophen 650 MG Q6P PRN 10/30 2130 AC PO Aspirin 81 MG DAILY 10/31 1330 AC 11/02 PO 0921 Atorvastatin Calcium 40 MG 1700 10/31 1700 AC 11/01 PO 2121 Captopril 6.25 MG TID 11/01 1019 DC 11/02 PO 0921 Carvedilol 3.125 MG BID 11/02 2200 AC PO Cholecalciferol 1,000 IU DAILY 10/31 1000 AC 11/02 PO 0922 Enoxaparin Sodium 40 MG DAILY 10/31 1000 AC 11/02 SC 0921 Furosemide 20 MG 0800 & 1700 11/01 1700 AC 11/02 IV 0921 Insulin Aspart 0 TIDAC 10/31 1700 AC 11/02 SC 0850 Ketorolac 15 MG Q8P PRN 10/30 2130 AC Tromethamine IV Lisinopril 5 MG 1700 11/02 1700 AC PO Multivitamins 1 TAB DAILY 10/31 1000 AC 11/02 Therapeutic PO 0922 Oxycodone/ 2 TAB Q6P PRN 10/30 2130 AC Acetaminophen PO Patient Medication 1 ED .STK-MED ONE 11/01 1358 [place] Teaching ED 11/01 1359 Polyethylene Glycol 17 GM DAILY 11/01 1000 AC 11/01 PO 1227 Senna 187 MG AT BEDTIME PRN 11/01 0845 AC PO Last 24 Hrs of Lab/Steven Results Last 24 Hrs of Labs/Mics: Laboratory Tests 11/02/16 0655: Anion Gap 7, Estimated GFR > 60, BUN/Creatinine Ratio 28.6 H Assessment/Plan Assessment: is a 61-year-old male with PMHx. of HTN, DM not in medications sent in by his primary doctor on the Efrain Valles MD for further evaluation of dyspnea with exertion and lower extremity edema. On admission his imaging studies as well as his labs and clinical examination was significant for CHF exacerbation. We'll admit patient on telemetry floor and will take it for the following problems Problem #1 lower extremity edema and shortness of breath most likely due to CHF exacerbation and ACS ruled out -Patient was started on IV Lasix and will continue intravenous diuresis for now and will change it to oral later and will strictly monitor his intakes and outputs. His fluid balance is -300. -Echocardiogram was done yesterday that showed significantly low ejection fraction to 30-35%. Moderate mitral regurg and mild to moderate pulmonary hypertension was also noted -Patient was started on captopril yesterday we will change it to lisinopril 5 mg daily and will discharge him on same. We will discharge patient on Coreg 3.15 mg twice a day started from today evening. Problem #2 diabetes mellitus not on any hypoglycemic agents at home -Accu-Cheks 3 times a day/allergies -We will cover with high-dose NovoLog according to sliding scale in the hospital but will consider starting patient on metformin on discharge and patient will follow up with his PCP for further stepping up therapy. Problem #3 history of hypertension not on any antihypertensives -His blood pressures remained stable during hospital stay. He has systolic heart failure with low ejection fraction to 30-35%. We will send him home on MEDARDO inhibitor as and beta blockers for mortality benefits. Problem List: 1. CHF exacerbation Pain Ratin Pain Location: Not applicable Pain Goal: Remain pain free Pain Plan: Tylenol Tomorrow's Labs & Rationales: CBC AND BEP HAMMAD FERNANDEZ MD 11/02/16 1241: Attending MD Review Statement Attending Statement Attending MD Statement: examined this patient, discuss w/resident/PA/PRODUCTION SUPERINTENDENT HYDRO, agreed w/resident/PA/PRODUCTION SUPERINTENDENT HYDRO, reviewed EMR data (avail), discussed with nursing, discussed with case mgmt, reviewed images, amended to note Attending Assessment/Plan: Patient seen and examined, says he feels the same, wants to get out of here. No acute overnight events on telemetry. Vital Signs Date Time Temp Pulse Resp B/P B/P Pulse O2 O2 Flow FiO2 Mean Ox Delivery Rate 11/02 0921 90 100/64 11/02 0820 98.8 90 18 100/64 94 Nasal 1.0L Cannula 11/02 0800 Nasal 2.0L Cannula 11/02 0000 Nasal 1.0L Cannula 11/01 2316 99.1 90 18 114/70 93 Nasal 1.0L Cannula 11/01 2122 90 112/78 11/01 1600 95 Nasal 1.0L Cannula 11/01 1544 98.5 83 18 108/70 95 11/01 1434 90 102/64 on exam; aox3, nad. cv; s1,s2, rrr resp; mostly clear abd; soft, nt, bs+ ext; 2+ edema. Laboratory Tests 11/02 0655 Chemistry Sodium (137 - 145 mmol/L) 134 L Potassium (3.5 - 5.1 mmol/L) 4.3 Chloride (98 - 107 mmol/L) 99 Carbon Dioxide (22 - 30 mmol/L) 28 Anion Gap (5 - 16) 7 BUN (9 - 20 mg/dL) 20 Creatinine (0.7 - 1.2 mg/dL) 0.7 Estimated GFR (>60 ml/min) > 60 BUN/Creatinine Ratio (7 - 25 %) 28.6 H A/P; 61 y/o M with pmh sig for uncontrolled diabetes, htn admitted with sob, found to have Acute systolic CHF. Patient still has lower extremity edema, requiring oxygen. He desatted to 87% on room air today. Still on IV Lasix. Continue IV Lasix. As discussed with cardiology, would add a low-dose MEDARDO inhibitor as well as low-dose Coreg. Please discuss with matrix inspector if telemetry is still required or not. Continue to monitor I's and O's. Continue to monitor daily weights. If oxygenation requirement is improved and lower extremity edema better, likely can switch to oral Lasix in the morning. DVT px: Lovenox. Likely discharge tomorrow if stable otherwise on Saturday.
[2016-11-02 08:20] VITALS: BP 100/64
[2016-11-02] MEDS ORDERED: COREG3.125 MG PO (11:29)
[2016-11-02] MEDS ORDERED: LISINOPRIL5 M1 PO (11:29)
--- NOTE | 2016-11-02 13:54 | PN- Cardiology ---
Subjective Subjective: The patient is feeling well today but remains on nasal cannula oxygen and still has some lower extremity edema. Denies any chest pain or palpitations. Objective Vital Signs and I&Os Vital Signs Date Time Temp Pulse Resp B/P B/P Pulse O2 O2 Flow FiO2 Mean Ox Delivery Rate 11/02 0921 90 100/64 11/02 0820 98.8 90 18 100/64 94 Nasal 1.0L Cannula 11/02 0800 Nasal 2.0L Cannula 11/02 0000 Nasal 1.0L Cannula 11/01 2316 99.1 90 18 114/70 93 Nasal 1.0L Cannula 11/01 2122 90 112/78 11/01 1600 95 Nasal 1.0L Cannula 11/01 1544 98.5 83 18 108/70 95 11/01 1434 90 102/64 Intake & Output 11/02 1600 11/02 0800 11/02 0000 11/01 1600 11/01 0800 11/01 0000 Intake Total 520 640 200 240 Output Total 700 6455 083 5248 Balance -180 -385 -300 -1510 Intake, Oral 520 640 200 240 Number 0 Bowel Movements Output, Urine 700 6807 666 1214 Patient 184 lb 190 lb Weight Weight Standing Scale Standing Scale Measurement Method Physical Exam: General: no apparent distress. Alert. On nasal cannula. Eyes: No obvious scleral icterus. HEENT: Mild JVD Cardiovascular: Normal intensity S1/S2. One out of 6 systolic murmur Respiratory: Mildly decreased air entry at the bases Abdomen: Soft, nontender with no guarding or rebound tenderness. Musculoskeletal: No clubbing or cyanosis noted, trace to 1+ bilateral lower extremity edema Skin: Warm Neurologic: No gross focal deficits noted. Current Medications: Current Medications Sig/Aleksandar Start time Last Medication Dose Route Stop Time Status Admin Acetaminophen 650 MG Q6P PRN 10/30 2130 AC PO Aspirin 81 MG DAILY 10/31 1330 AC 11/02 PO 0921 Atorvastatin Calcium 40 MG 1700 10/31 1700 AC 11/01 PO 2121 Captopril 6.25 MG TID 11/01 1019 DC 11/02 PO 0921 Carvedilol 3.125 MG BID 11/02 2200 AC PO Cholecalciferol 1,000 IU DAILY 10/31 1000 AC 11/02 PO 0922 Enoxaparin Sodium 40 MG DAILY 10/31 1000 AC 11/02 SC 0921 Furosemide 20 MG 0800 & 1700 11/01 1700 AC 11/02 IV 0921 Insulin Aspart 0 TIDAC 10/31 1700 AC 11/02 SC 1225 Ketorolac 15 MG Q8P PRN 10/30 2130 AC Tromethamine IV Lisinopril 5 MG 1700 11/02 1700 AC PO Multivitamins 1 TAB DAILY 10/31 1000 AC 11/02 Therapeutic PO 0922 Oxycodone/ 2 TAB Q6P PRN 10/30 2130 AC Acetaminophen PO Patient Medication 1 ED .STK-MED ONE 11/01 1358 [place] Teaching ED 11/01 1359 Polyethylene Glycol 17 GM DAILY 11/01 1000 AC 11/01 PO 1227 Senna 187 MG AT BEDTIME PRN 11/01 0845 AC PO Results Last 48 Hrs of Labs/Mics: Laboratory Tests 11/02/16 0655: Anion Gap 7, Estimated GFR > 60, BUN/Creatinine Ratio 28.6 H 11/01/16 0645: Anion Gap 7, Estimated GFR > 60, BUN/Creatinine Ratio 27.1 H, CBC w Diff NO MAN DIFF REQ, RBC 4.58 L, MCV 90.6, MCH 29.7, RDW 13.6, MPV 8.1, Gran % 55.2, Lymphocytes % 30.4, Monocytes % 10.2 H, Eosinophils % 3.8, Basophils % 0.4, Absolute Granulocytes 4.1, Absolute Lymphocytes 2.2, Absolute Monocytes 0.8 H, Absolute Eosinophils 0.3, Absolute Basophils 0, PUBS MCHC 32.8 L 10/31/161853: Ur Random Creatinine 20.0, Ur Random Microalbumin < 0.6 10/31/161853: Urine Color YEL, Urine Clarity CLEAR, Urine pH 6.5, Ur Specific [place] 1.010, Urine Protein NEG, Urine Ketones NEG, Urine Nitrite NEG, Urine Bilirubin NEG, Urine Urobilinogen 0.2, Ur Leukocyte Esterase NEG, Ur Microscopic EXAM NOT REQUIRED, Urine Hemoglobin NEG, Urine Glucose 100 H Recent Imaging Studies: Telemetry tracings were personally reviewed and shows sinus rhythm Echo: CONCLUSIONS Poor Echo window. Moderate reduction in overall left ventricular systolic function.Suggestion on inferior and inferoapical hypokinesia. Moderate to severe Mitral regurgitation. Mild to moderate Pulmonary ypertension. Repeat CXR 11/01 IMPRESSION: Findings most consistent with improving pulmonary edema with residual pleural effusions and atelectasis versus infiltrate. Assessment/Plan Assessment/Plan 1. Progressive exertional dyspnea due to new onset decompensated systolic congestive heart failure 2. Moderate left ventricular dysfunction with halz-yl-vrbokswm pulmonary hypertension 3. Diabetes, uncontrolled 4. Reported history of hypertension 5. Abnormal ECG 6. History of noncompliance with medical follow-up due to loss of insurance Patient continues to improve with IV diuresis. Continue to maintain negative fluid balance as he remains on nasal cannula oxygen and still has some lower extremity edema. We have changed him over to lisinopril 5 milligrams daily and initiated low-dose carvedilol b.i.d. given his cardiomyopathy which is likely ischemic in nature (With hold parameters in place as his blood pressure is borderline now.) Continue on daily aspirin and statin. He will certainly need an ischemic evaluation which will be done as an outpatient after he has been optimized. Defer management of the uncontrolled diabetes to the primary team. Jeffery Turner MD [facility] Continue telemetry? Yes
[2016-11-02 16:40] VITALS: BP 112/64
[2016-11-02 21:13] VITALS: BP 126/68
[2016-11-03 00:23] VITALS: BP 102/80
[2016-11-03 07:56] VITALS: BP 110/70
[2016-11-03 08:45] LABS: ABSOLUTE BASOPHIL COUNT 0 /CUMM (0.0-0.2); ABSOLUTE EOSINOPHIL COUNT 0.3 /CUMM (0.0-0.7); ABSOLUTE GRANULOCYTE CT 4.1 /CUMM (1.4-6.5); ABSOLUTE MONOCYTE COUNT 0.9 /CUMM (0.10-0.60); BASOPHIL % 0.6 % (0.0-2.0); EOSINOPHIL % 3.8 % (0-5); MEAN CORPUSCULAR HGB 29.8 PG (27.0-31.0); MEAN CORPUSCULAR VOLUME 90.1 FL (80.0-94.0); PLATELET COUNT 213 /CUMM (130-400); RBC DISTRIBUTION WIDTH 13.8 % (11.5-14.5); RED BLOOD CELL CT 4.44 /CUMM (4.70-6.10); WHITE BLOOD CELL COUNT 7.3 /CUMM (4.8-10.8)
--- NOTE | 2016-11-03 08:53 | PN- Housestaff ---
AARON BREWER 11/03/16 0853: Subjective Follow-up For: new onset congestive heart failure Pleural effusions Diabetes, uncontrolled Reported history of hypertension Complaints: no complaints Tele-Events Since Last Visit: No telemetry events Subjective: Patient was visited and examined this morning. Exercise tolerance has increased and patient report significant improvement in his initial presentation of marked exertional short of breath and massive bilateral lower extremity edema. Patient denies any chest pain, palpitation, dizziness, GI/ symptoms. CBC and biochemistry results were reviewed. The lab results are unremarkable patient is a stable to be discharged. Review of Systems Constitutional: Reports: no symptoms. EENTM: Reports: no symptoms. Cardiovascular: Reports: edema. Denies: chest pain, orthopena, palpitations, peripheral edema, syncope. Respiratory: Reports: no symptoms. Gastrointestinal: Reports: no symptoms. Musculoskeletal: Reports: no symptoms. Objective Last 24 Hrs of Vital Signs/I&O Vital Signs Date Time Temp Pulse Resp B/P B/P Pulse O2 O2 Flow FiO2 Mean Ox Delivery Rate 11/03 1035 83 110/70 / 0756 98.6 83 14 110/70 97 Room Air 05/ 0023 98.3 95 20 102/80 94 Room Air 05/05 2113 95 18 126/68 92 Room Air 05/05 2112 95 126/68 05/05 1800 91 110/60 05/05 1640 98.8 90 20 112/64 96 Room Air 05/05 1600 95 Room Air 05/05 1449 95 Room Air 05/05 1200 94 Nasal 1.0L Cannula Intake & Output / 1600 /06 0800 05/06 0000 Intake Total 120 470 Output Total 700 Balance 120 -230 Intake, IV 20 Intake, Oral 120 450 Output, Urine 700 Patient 186 lb Weight Weight Standing Scale Measurement Method Physical Exam General Appearance: Alert, Oriented X3, Cooperative, No Acute Distress Skin: No Rashes, No Breakdown, No Significant Lesion Cardiovascular: Normal S1, Normal S2, No Murmurs Lungs: Clear to Auscultation, Normal Air Movement, slight decrease in air movements base of the left long Abdomen: Soft, No Tenderness Neurological: Normal Speech Extremities: 1+ pitting edema bilateral lower extremities Current Medications: Current Medications Sig/Aleksandar Start time Last Medication Dose Route Stop Time Status Admin Acetaminophen 650 MG Q6P PRN 10/30 2130 AC PO Aspirin 81 MG DAILY 10/31 1330 AC 11/03 PO 0918 Atorvastatin [place] 40 [place] [address]/31 1700 AC 11/02 PO 1759 Captopril 6.25 MG TID 11/01 1019 DC 11/02 PO 0921 Carvedilol 3.125 MG BID 11/02 2200 AC 11/03 PO 1035 Cholecalciferol 1,000 IU DAILY 10/31 1000 AC 11/03 PO 0919 Enoxaparin Sodium 40 MG DAILY 10/31 1000 AC 11/03 SC 0919 Furosemide 20 MG 0800 & 1700 11/01 1700 AC 11/03 IV 0919 Insulin Aspart 0 TIDAC 10/31 1700 AC 11/03 SC 0805 Ketorolac 15 MG Q8P PRN 10/30 2130 AC Tromethamine IV Lisinopril 5 [place] 17011/02 1700 AC 11/02 PO 1800 Multivitamins 1 TAB DAILY 10/31 1000 AC 11/03 Therapeutic PO 0918 Oxycodone/ 2 TAB Q6P PRN 10/30 2130 AC Acetaminophen PO Polyethylene Glycol 17 GM DAILY 11/01 1000 AC 11/01 PO 1227 Senna 187 MG AT BEDTIME PRN 11/01 0845 AC PO Last 24 Hrs of Lab/Steven Results Last 24 Hrs of Labs/Mics: Laboratory Tests 11/03/16 0655: Anion Gap 10, Estimated GFR > 60, BUN/Creatinine Ratio 30.0 H, CBC w Diff NO MAN DIFF REQ, RBC 4.44 L, MCV 90.1, MCH 29.8, RDW 13.8, MPV 8.0, Gran % 56.0, Lymphocytes % 27.9, Monocytes % 11.7 H, Eosinophils % 3.8, Basophils % 0.6, Absolute Granulocytes 4.1, Absolute Lymphocytes 2.0, Absolute Monocytes 0.9 H, Absolute Eosinophils 0.3, Absolute Basophils 0, PUBS MCHC 33.0 Assessment/Plan Assessment: is a 61-year-old male with PMHx. of HTN, DM not in medications sent in by his primary doctor on the Efrain Valles MD for further evaluation of dyspnea with exertion and lower extremity edema. On admission his imaging studies as well as his labs and clinical examination was significant for CHF exacerbation. 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 Mosley as an outpatient- Problem #2 diabetes mellitus not on any hypoglycemic agents at home -Continue metformin Problem #3 history of hypertension not on any antihypertensives -His blood pressures remained stable during hospital stay. He has systolic heart failure with low ejection fraction to 30-35%. We will send him home on MEDADRO inhibitor as and beta blockers for mortality benefits. Problem List: 1. CHF exacerbation Pain Ratin Pain Location: Not applicable Pain Goal: Pain 4 or less Pain Plan: Tylenol as needed Tomorrow's Labs & Rationales: No labs Discharge Plan Discharge Disposition: home FLACO CHU MD 11/03/16 1248: Attending MD Review Statement Attending Statement Attending MD Statement: examined this patient, discuss w/resident/PA/[employer], agreed w/resident/PA/[employer], reviewed EMR data (avail), discussed with nursing, discussed with case mgmt, amended to note Attending Assessment/Plan: Patient seen and examined. Resting comfortably and not in any acute distress. No events overnight reported by nursing staff. No events overnight on telemetry monitoring. He remains in normal sinus rhythm. He denies chest pain or shortness of breath. Denies palpitations. He is maintaining saturation on room air. On examination lungs are clear to auscultation bilaterally and he has trace peripheral edema. Patient has been started on metformin for his diabetes I will be following up with his primary care provider as an outpatient. He is medically stable to be discharged home today.
[2016-11-03 10:35] VITALS: BP 110/70
== END 2016-11-03 11:55 | DRG 194 ==
LOC: ERH 17:17 → 1NO 19:08 → ERHI 19:08 → ENRESERV 22:10 → 1NO 22:51 → ENPENDDIS 11-03 11:14 → 1NO 11-03 11:55
PROVIDERS: Internal Medicine; Physician Assistant; Student in an Organized Health Care Education/Training Program; ADMIT Internal Medicine
DX: I11.0 Hypertensive heart disease with heart failure (principal); I50.21 Acute systolic (congestive) heart failure; E11.65 Type 2 diabetes mellitus with hyperglycemia; Z79.4 Long term (current) use of insulin; J96.01 Acute respiratory failure with hypoxia; Z66 Do not resuscitate; Z91.19 Patient's noncompliance with other medical treatment and regimen
CPT/HCPCS: 1NSP; 36415; 81003; 82436; 82570; 87086; 93005; 93010; 93306; J1650; J1815; J1940; J3490